=== PATIENT | female | born 1935 | race Caucasian/White ===

== ENCOUNTER 2016-11-13 09:31 | Observation (INO) | payer MEDICARE, MEDICAID ==
[2016-11-13 10:30] LABS: Hematocrit 40 % (35-47); Mean Corpuscular HGB Conc 33 g/dl (31-36); Mean Corpuscular Hemoglobin 30 pg (27-31); Mean Corpuscular Volume 92 fL (80-97); Mean Platelet Volume 9 um3 (7.4-10.4); Red Blood Count 4.31 10^6/ul (4.0-5.4); Red Cell Distribution Width 14 % (10.5-15); White Blood Count 9.6 10^3/ul (3.5-10.8)
--- NOTE | 2016-11-13 10:33 | RAD ---
INDICATION: Altered mental status. COMPARISON: Comparison is made with a prior chest x-ray study from February 19, 2016. TECHNIQUE: A portable view of the chest was obtained. FINDINGS: Cardiac and mediastinal contours appear to be within normal limits. The lungs are underinflated and clear. No pleural effusion is seen. IMPRESSION: NO EVIDENCE FOR ACUTE DISEASE.
[2016-11-13 10:52] LABS: Troponin I 0.04 ng/mL (<0.04)
[2016-11-13 10:58] LABS: Albumin 4.1 g/dL (3.2-5.2); Calcium 10.2 mg/dL (8.6-10.3); EGFR African American 68.3 (>60); EGFR Non-African American 53.1 (>60); Globulin 3.8 g/dL (2-4); Potassium 4.7 mmol/L (3.5-5.0); Total Bilirubin 0.3 mg/dL (0.2-1.0); Total Protein 7.9 g/dL (6.4-8.9)
--- NOTE | 2016-11-13 11:27 | RAD ---
Indication: Altered mental status. Increased confusion and facial droop. Weakness. Comparison: February 19, 2016 CT. Technique: Noncontrast CT vertex of skull through foramen magnum. Report: Unchanged LEFT frontal extra-axial epidural hypodense fluid collection measuring up to 4 mm in thickness compared with the February 19, 2016 exam without concern. Chronic large region of encephalomalacia primarily involving the LEFT anterior cerebral artery distribution of the LEFT frontal lobe. No new region of krishna matter white matter obscuration, acute or subacute intra or extra-axial hemorrhage, or mass effect. Decreased density in the periventricular and subcortical white matter while non-specific is most likely due to chronic microangiopathy. Mild prominence of the cerebral sulci and cerebellar fissures as well as moderate prominence of the ventricles without change reflecting atrophy. Patent basal cisterns. Unremarkable orbital contents. No suspicious lesion of the calvarium or skull base. Postsurgical change of LEFT frontal temporal craniotomy and merry hole. Clear paranasal sinuses and mastoid air spaces. Unremarkable scalp.. IMPRESSION: 1. Postsurgical change of LEFT frontal temporal craniotomy and unchanged large region of encephalomalacia at the anterior cerebral artery distribution of the LEFT frontal lobe. 2. Atrophy and stigmata of chronic small vessel ischemic disease. 3. No acute intracranial process evident.
[2016-11-13 11:34] LABS: Urine Bacteria 1+ (Absent); Urine Bilirubin Negative (Negative); Urine Glucose Negative (Negative); Urine Nitrite Negative (Negative)
[2016-11-13] MEDS ORDERED: cefTRIAXone(*) 1 GM in NS 0.9% 50 ML* 50 ML IVPB ONE (13:34)
[2016-11-13] MEDS ORDERED: NS 0.9% 1000 ML* 1,000 ML IV ONE (13:34)
[2016-11-13] MEDS ORDERED: GuaiFENesin DM* 5 ML UDC PO PRN (14:35)
[2016-11-13] MEDS ORDERED: Acetaminophen TAB* 325 MG PO PRN (14:35)
[2016-11-13] MEDS ORDERED: Al Hydrox/Mg Hydrox/Simet LIQ* 30 ML UDC PO PRN (14:35)
[2016-11-13] MEDS ORDERED: Ibuprofen TAB* 400 MG PO PRN (14:35)
[2016-11-13] MEDS ORDERED: Calamine LOTION* 120 ML TOPICAL PRN (14:35)
[2016-11-13 15:35] LABS: TSH (Thyroid Stimulating Horm) 5.23 mcIU/mL (0.34-5.60)
[2016-11-13] MEDS: NS 0.9% 1000 ML* 1,000 ML IV SCH (15:58)
[2016-11-13] MEDS: Docusate CAP* 100 MG PO SCH (21:18)
[2016-11-13] MEDS: Heparin VIAL(*) 5000 UNITS/ML VIAL (FIVE THOUSAND) SUBCUT SCH (21:19)
[2016-11-13] MEDS: Phenytoin CAP(*) 100 MG CAP.ER PO SCH (21:19)
--- NOTE | 2016-11-13 22:11 | HP ---
HISTORY AND PHYSICAL: DATE OF ADMISSION: 11/13/16 PRIMARY CARE PHYSICIAN: Dr. Carmen Ramirez. CHIEF COMPLAINT: Lethargy. HISTORY OF PRESENT ILLNESS: Ms. eRina is an 81-year-old female with a past medical history of developmental delay; seizure disorder; dementia; history of DVT; recurrent UTIs, on prophylactic Bactrim; anaplastic oligodendroglioma, status post left frontal craniotomy and resection; hypothyroidism who presents to the hospital from her [facility] with lethargy. The patient is unable to contribute much to history due to her developmental delay. History is obtained mostly from the chart and from staff at [facility]. The patient reportedly this morning was not responding when they attempted to wake her up. She was much more lethargic than usual. The staff was finally able to get her up and onto the toilet and they state that she was throwing herself back while she was sitting on the toilet and was at risk of falling. The patient has not had any recent fever or chills; however, they did note over the past few days that she had been acting in a more uncooperative manner than she usually is. Staff feel that this is a similar presentation to her frequent urinary tract infections. She is on prophylactic Bactrim at home for recurrent UTI's. The patient is unable to contribute much to the history. She has no complaints at present and seems surprised to be told that she is in the hospital. PAST MEDICAL HISTORY: 1. Developmental delay. 2. Seizure disorder. 3. Hypothyroidism. 4. Anaplastic oligodendroglioma. 5. DVT, not currently on anticoagulation. 6. Dementia. 7. Recurrent UTIs. 8. GERD. PAST SURGICAL HISTORY: 1. Left frontal craniotomy. 2. Lumpectomy. HOME MEDICATIONS: 1. Synthroid 125 mcg by mouth daily. 2. Sunscreen topical daily as needed for sun exposure. 3. Tylenol 650 mg by mouth every 4 hours as needed for pain. 4. Ibuprofen 400 mg by mouth every 4 hours as needed for pain. 5. Calamine lotion 1 application topical 3 times daily as needed for itching. 6. Bacitracin 1 application topical 3 times daily as needed for wound care. 7. Guaifenesin 10 mL by mouth every 4 hours as needed for cough. 8. Maalox 30 mL by mouth with meals and at night as needed for indigestion. 9. Mineral oil 3 drops in both ears 3 times daily. 10. Trospium chloride 60 mg by mouth daily. 11. Minerin cream 1 application topical daily. 12. Probiotic 4 mg by mouth 2 times daily. 13. Omeprazole 20 mg by mouth daily. 14. Colace 200 mg by mouth 2 times daily. 15. Phenytoin 200 mg by mouth 2 times daily. 16. Multivitamin 1 tablet by mouth daily. 17. Bactrim Double Strength 1 tablet by mouth daily. 18. Calcium carbonate 600 plus D 1 tablet by mouth daily. 19. MiraLAX 17 g by mouth daily. ALLERGIES: ABRAHAM, PROCAINE, and ANESTHETICS. FAMILY HISTORY: Unable to obtain. SOCIAL HISTORY: The patient is a resident at [facility]. He has no surrogate decision maker. No reported history of alcohol or illicit drug use or tobacco abuse. REVIEW OF SYSTEMS: Unable to obtain. PHYSICAL EXAMINATION GENERAL: The patient is a pleasant elderly female lying in bed in no apparent distress with occasional moaning; however, this may be more of an involuntary noise and expression of pain. VITAL SIGNS: On admission, temperature 99.5, heart rate of 75, O2 saturation 97 % on room air, respiratory rate 16, blood pressure 126/58. HEENT: Pupils equal, round, reactive to light and accommodation. Anicteric sclerae. Moist mucous membranes. NECK: No cervical adenopathy. LUNGS: Clear to auscultation bilaterally. No wheezes, rales, or rhonchi. CARDIOVASCULAR: Regular rate and rhythm. S1 and S2 present. No murmurs, gallops, or rubs. ABDOMEN: Obese, soft, nontender, nondistended. Bowel sounds positive. EXTREMITIES: No cyanosis, clubbing, or edema. NEUROLOGIC: The patient is alert and oriented to self only. Unable to tell me where she is or why she is at the hospital. No focal neurological deficits aside from a chronic left facial droop. LABS AND DIAGNOSTICS: White blood cell count of 9.6, hematocrit of 40, platelets of 190. INR was 0.87. Sodium 136, potassium 4.7, carbon dioxide 27, BUN of 26, creatinine of 1.00, glucose of 122, lactic acid of 1.6, alk phos of 185. Remainder of LFTs within normal limits. Troponin of 0.04. UA with 1+ blood, trace leukocyte esterase, 1+ wbc, squamous epithelial cells, 1+ bacteria. CT of the brain shows status post left frontotemporal craniotomy with encephalomalacia, no acute changes. Chest x-ray personally reviewed shows no acute disease. EKG personally reviewed shows left bundle branch block which is chronic. ASSESSMENT AND PLAN: Unresponsive episode and lethargy in an 81-year-old female with a past medical history of developmental delay, seizure disorder, hypothyroidism, history of brain cancer, status post resection, recurrent urinary tract infections and gastroesophageal reflux disease. 1. Lethargy, altered mental status: Symptoms are similar to the previous presentation the patient had when she presented with urinary tract infection; however, her UA is not completely convincing for this. She received a dose of ceftriaxone in the emergency department. We will hold off on any additional IV antibiotics for now and will resume her home prophylactic Bactrim. It does seem that she has some dehydration on her labs. We will continue with IV fluids overnight tonight. We will check a TSH level. The patient's mental status seems improved at the moment. 2. Troponin elevation: Troponin of 0.04. The patient is not showing any ischemic EKG changes. Not reporting any chest pain currently. We will just monitor on telemetry and trend the patient's troponins for now. 3. Seizure disorder: I do not feel that this is likely a seizure. We will continue the patient's home phenytoin 200 mg by mouth 2 times daily. 4. Hypothyroidism: Continue home Synthroid. Checking a TSH as above. 5. Developmental delay: Supportive care. 6. DVT prophylaxis: Heparin subcu. 7. Code status: The patient is a full code. TIME SPENT: Total time spent on this admission, 35 minutes with over half the time spent [id number] with the patient in counseling and coordinating care. CC: Dr. Carmen Ramirez* [id number]/CPS #: [id number] [facility] HOSPITALNicole
[2016-11-14] MEDS: NS 0.9% 1000 ML* 1,000 ML IV SCH (02:22)
[2016-11-14] MEDS: Heparin VIAL(*) 5000 UNITS/ML VIAL (FIVE THOUSAND) SUBCUT SCH (05:45)
[2016-11-14 05:55] LABS: BUN/Creatinine Ratio 29.6 (8-20); Calcium 8.8 mg/dL (8.6-10.3); EGFR African American 101.4 (>60); EGFR Non-African American 78.8 (>60)
[2016-11-14] MEDS ORDERED: Levothyroxine TAB* 125 MCG TAB PO SCH (06:00)
[2016-11-14 08:17] VITALS: BP 152/50
--- NOTE | 2016-11-14 08:39 | DCNOTE ---
Patient seen this morning. No further issues overnight other than pulling out her IV. Is awake and alert, aide at bedside says she seems to be at her baseline. Ate all of her breakfast. On exam, RRR, s1 and s2 present, no m/g/r, abd soft, NTND, BS+, no LE edema, mild RUE edema and erythema from infiltrated IV Do not think patient has UTI. Mild LIBERTY improved with IVF. Will discharge back to [facility] with previous ppx Bactrim. No additional ABx indicated at this time.
[2016-11-14] MEDS ORDERED: Omeprazole CAP* 20 MG PO SCH (09:00)
[2016-11-14] MEDS ORDERED: Polyethylene Glycol 3350* 17 GM PACKET PO SCH (09:00)
[2016-11-14] MEDS ORDERED: Sulfamethox/Trimethoprim DS 800/160* TAB PO SCH (09:00)
[2016-11-14] MEDS ORDERED: Multivitamins/Minerals TAB PO SCH (09:00)
[2016-11-14] MEDS: Docusate CAP* 100 MG PO SCH (09:46)
[2016-11-14] MEDS: Phenytoin CAP(*) 100 MG CAP.ER PO SCH (09:46)
--- NOTE | 2016-11-14 23:26 | DS ---
DISCHARGE SUMMARY: DATE OF ADMISSION: 11/13/16 DATE OF DISCHARGE: 11/14/16 PRIMARY CARE PHYSICIAN: Dr. Carmen Ramirez. PRINCIPAL DISCHARGE DIAGNOSES: 1. Acute kidney injury. 2. Dehydration. 3. Lethargy. SECONDARY DIAGNOSES: 1. Recurrent urinary tract infections. 2. Dementia. 3. Developmental delay. 4. Seizure disorder. 5. Hypothyroidism. 6. Anaplastic oligodendroglioma, status post resection. 7. Left frontal craniotomy. 8. Deep venous thrombosis. 9. Gastroesophageal reflux disease. DISCHARGE MEDICATION REGIMEN: 1. MiraLAX 17 g by mouth daily. 2. Calcium carbonate. 3. Vitamin D 1 tablet by mouth daily. 4. Bactrim 1 tablet by mouth daily. 5. Tylenol 650 mg by mouth 2 times daily as needed for pain. 6. Multivitamins 1 tablet by mouth daily. 7. Phenytoin 200 mg by mouth 2 times daily. 8. Colace 200 mg by mouth 2 times daily. 9. Omeprazole 20 mg by mouth daily. 10. Probiotic 4 mg by mouth 2 times daily. 11. Eucerin cream 1 application topical daily. 12. [place] 60 mg by mouth daily. 13. Mineral oil 3 drops in both ears 3 times daily as needed for wax buildup. 14. Maalox Plus 30 mL by mouth a.c. and h.s. as needed for indigestion. 15. Robitussin 10 mL by mouth every 4 hours as needed for cough. 16. Bacitracin 1 application topical 2 times daily as needed for rash. 17. Calamine lotion 1 application topical 3 times daily as needed for itching. 18. Ibuprofen 400 mg by mouth every 4 hours as needed for pain. 19. Sunscreen 1 lotion topical daily as needed for sun exposure. 20. Synthroid 125 mcg by mouth daily. STUDIES DONE DURING HOSPITALIZATION: CT of the brain without contrast. Impression: Postsurgical change in the left frontotemporal craniotomy and unchanged large region of encephalomalacia at the anterior cerebral artery distribution on the left frontal lobe, atrophy and stigmata of chronic small vessel ischemic disease. No acute intracranial process is evident. Chest x-ray, impression: No evidence for acute disease. HPI AND HOSPITAL SUMMARY: Please see the full history and physical done by me on 11/13/16. Briefly, Ms. Reina is an 81-year-old female with a past medical history as above who presented to the hospital when she had an unresponsive episode and lethargy at [facility]. By the time the patient came to the hospital, she seemed to have improved. There was concern for possibly urinary tract infection, she was given a dose of ceftriaxone in the emergency department. She had some evidence of LIBERTY on her initial labs which improved with IV fluids. The patient's urinalysis was not convincing for urinary tract infection, no further IV antibiotics were given. She was continued on her home prophylactic Bactrim. Her symptoms resolved by the following day and she seemed to be back to her baseline. A TSH was checked that was negative. The patient also had a mild troponin elevation on admission that was trended and did not get any higher than 0.04. She will be discharged back to the custodial. Follow up with her PCP as an outpatient. TIME SPENT: Total time spent on this discharge, 35 minutes. This is a summary of the hospitalization; please see the full medical record for further details. CC: Dr. Carmen Ramirez * [id number]/CPS #: [id number]
--- NOTE | 2016-11-15 18:21 | ED ---
Hanny Almaguer Matthew, scribed for Scot Aragon MD on 11/13/16 at 1032 . Neurological HPI - HPI Summary HPI Summary: An 81 y/o female presents to the ED with difficulty ambulating, slouching, and decreased verbal response per her [facility] since 06:00 this morning. Per EMS , the patient was slouching to one side. She also has Hx of craniotomy, brain CA , and seizures. She has a Hx of left sided facial droop at baseline, which was documented in her arrival paperwork. The patient lives at a penitentiary. Associated symptoms include urinary incontinence. The patient denies pain, headache, chest pain, SOB, abdominal pain, and dysuria. Recent Hx of UTIs. The patient is completely interactive and answering questions appropriately currently. - History of Current Complaint Chief Complaint: EDGeneral Stated Complaint: WEAKNESS Hx Obtained From: Patient Onset/Duration: Started hours ago - 06:00, Still Present Timing: Constant Current Severity: None Pain Intensity: 3 Pain Scale Used: 0-10 Numeric Character: Other: - slouching and decreased responsiveness Aggravating: Nothing Alleviating: Nothing Associated Signs and Symptoms: Positive: Unsteady Gait - difficulty ambulating - Additional Pertinent History Primary Care Physician: [id number] - Allergy/Home Medications Allergies/Adverse Reactions: Allergies Allergy/AdvReac Type Severity Reaction Status Date / Time Anesthetics, Letitia Allergy Unknown Unknown Verified 11/13/16 09:41 Reaction Details Procaine [From Novocain] Allergy Unknown Unknown Verified 11/13/16 09:41 Reaction Details Environmental Allergies Allergy Unknown Unknown Uncoded 11/13/16 09:41 Reaction Details tape Allergy See Comment Uncoded 11/13/16 09:41 Home Medications: Home Medications Acetaminophen TAB* [Tylenol TAB*] 650 mg PO BID PRN 11/13/16 [History Confirmed 11/13/16] Acetaminophen TAB* [Tylenol TAB*] 650 mg PO Q4H PRN 11/13/16 [History Confirmed 11/13/16] Levothyroxine TAB* [Synthroid 125 MCG TAB*] 125 mcg PO DAILY 11/13/16 [History Confirmed 11/13/16] Mineral Oil [Hm Mineral Oil] 3 drop BOTH EARS TID PRN 11/13/16 [History Confirmed 11/13/16] Minerin Cream* [Eucerin Cream*] 1 applic TOPICAL DAILY 11/13/16 [History Confirmed 11/13/16] Omeprazole CAP* [Prilosec CAP* 20 MG] 20 mg PO DAILY 11/13/16 [History Confirmed 11/13/16] Sunscreens [Sunblock Lotion Spf30] 1 lot TOPICAL DAILY PRN 11/13/16 [History Confirmed 11/13/16] PMH/Surg Hx/FS Hx/Imm Hx Endocrine/Hematology History: Reports: Hx Thyroid Disease Denies: Hx Anticoagulant Therapy, Hx Diabetes, Hx Sickle Cell Disease Cardiovascular History: Denies: Hx Hypertension, Hx Pacemaker/ICD Respiratory History: Denies: Hx Asthma, Hx Chronic Obstructive Pulmonary Disease (COPD) GI History: Reports: Hx Gastroesophageal Reflux Disease, Other GI Disorders - constipation Denies: Hx Ulcer History: Reports: Other Problems/Disorders - urinary incontinence, UTI Denies: Hx Renal Disease Musculoskeletal History: Reports: Hx Arthritis - OSTEOARTHRITIS, Hx Osteoporosis - osteopenia, Hx Scoliosis - mild Denies: Other Musculoskeletal History Sensory History: Reports: Hx Cataracts, Hx Contacts or Glasses, Hx Hearing Aid, Hx Hearing Problem Opthamlomology History: Reports: Hx Cataracts, Hx Contacts or Glasses Neurological History: Reports: Hx Dementia, 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 PT UNABLE TO COMMUNICATE, DEMENTIA. LIMITED HISTORY Hx Anesthesia Reactions: No Infectious Disease History: No Infectious Disease History: Denies: Hx Clostridium Difficile, Hx Hepatitis, Hx Human Immunodeficiency Virus (HIV), Hx of Known/Suspected MRSA, Hx Shingles, Hx Tuberculosis, Hx Known/ Suspected VRE, Hx Known/Suspected VRSA, History Other Infectious Disease, Traveled Outside the [place] in Last 30 Days - Family History Family History: No FHx of breast CA - Social History Alcohol Use: None Substance Use Type: Reports: None Smoking Status (MU): Never Smoked Tobacco Review of Systems Constitutional: Negative Eyes: Negative ENT: Negative Cardiovascular: Negative Respiratory: Negative Gastrointestinal: Negative Positive: incontinence - urinary Musculoskeletal: Negative Skin: Negative Neurological: Negative Psychological: Normal All Other Systems Reviewed And Are Negative: Yes Physical Exam Triage Information Reviewed: Yes Vital Signs On Initial Exam: Initial Vitals Temp Pulse Resp BP Pulse Ox 99.5 F 75 16 126/58 97 11/13/16 09:40 11/13/16 09:40 11/13/16 09:40 11/13/16 09:40 11/13/16 09:40 Vital Signs Reviewed: Yes Appearance: Positive: Well-Appearing, No Pain Distress Skin: Positive: Warm, Dry Head/Face: Positive: Other - Normocephalic; Atraumatic Eyes: Positive: Conjunctiva Clear ENT: Positive: Normal ENT inspection Neck: Positive: No Lymphadenopathy, Other: - Full ROM; No JVD Respiratory/Lung Sounds: Positive: Other - Normal Effort; No respiratory distress. Negative: Rales, Rhonchi, Stridor, Tracheal Deviation, Wheezes Cardiovascular: Positive: RRR, Other - Rhythm regular, rate normal, Heart sounds normal; Intact distal pulses; The pedal pulses are 2+ and symmetric. Radial pulses are 2+ and symmetric. Negative: Murmur Abdomen Description: Positive: Other: - SUPRAPUBIC TENDERNESS; URINARY INCONTINENCE; No Rebound. Negative: Distended, Guarding Bowel Sounds: Positive: Present Musculoskeletal: Negative: Edema Left, Edema Right Neurological: Positive: Sensory/Motor Intact, CN Intact II-III Psychiatric: Positive: Affect/Mood Appropriate - Petra Coma Scale Coma Scale Total: 14 Diagnostics - Vital Signs Vital Signs Temp Pulse Resp BP Pulse Ox 11/13/16 09:40 99.5 F 75 16 126/58 97 - Laboratory Lab Results: Lab Results 11/13/16 11/13/16 11/13/16 Range/Units 10:15 10:15 10:15 WBC 9.6 (3.5-10.8) 10^3/ul RBC 4.31 (4.0-5.4) 10^6/ul Hgb 13.0 (12.0-16.0) g/dl Hct 40 (35-47) % MCV 92 (80-97) fL MCH 30 (27-31) pg MCHC 33 (31-36) g/dl RDW 14 (10.5-15) % Plt Count 190 (150-450) 10^3/ul MPV 9 (7.4-10.4) um3 Neut % (Auto) 80.2 (38-83) % Lymph % (Auto) 12.6 L (25-47) % [place] % (Auto) 6.0 (1-9) % Eos % (Auto) 0.9 (0-6) % Baso % (Auto) 0.3 (0-2) % Absolute Neuts (auto) 7.7 (1.5-7.7) 10^3/ul Absolute Lymphs (auto) 1.2 (1.0-4.8) 10^3/ul Absolute Monos (auto) 0.6 (0-0.8) 10^3/ul Absolute Eos (auto) 0.1 (0-0.6) 10^3/ul Absolute Basos (auto) 0 (0-0.2) 10^3/ul Absolute Nucleated RBC 0.01 10^3/ul Nucleated RBC % 0.1 INR (Anticoag Therapy) 0.87 L (0.89-1.11) APTT 25.7 L (26.0-36.3) seconds Sodium 136 (133-145) mmol/L Potassium 4.7 (3.5-5.0) mmol/L Chloride 102 (101-111) mmol/L Carbon Dioxide 27 (22-32) mmol/L Anion Gap 7 (2-11) mmol/L BUN 26 H (6-24) mg/dL Creatinine 1.00 H (0.51-0.95) mg/dL Est GFR ( Amer) 68.3 (>60) Est GFR (Non-Af Amer) 53.1 (>60) BUN/Creatinine Ratio 26.0 H (8-20) Glucose 122 H (70-100) mg/dL Lactic Acid (0.5-2.0) mmol/L Calcium 10.2 (8.6-10.3) mg/dL Total Bilirubin 0.30 (0.2-1.0) mg/dL AST 33 (13-39) U/L ALT 37 (7-52) U/L Alkaline Phosphatase 185 H (34-104) U/L Troponin I 0.04 H* (<0.04) ng/mL Total Protein 7.9 (6.4-8.9) g/dL Albumin 4.1 (3.2-5.2) g/dL Globulin 3.8 (2-4) g/dL Albumin/Globulin Ratio 1.1 (1-3) TSH 5.23 (0.34-5.60) mcIU/mL Urine Color Urine Appearance Urine pH (5-9) Ur Specific [place] (1.010-1.030) Urine Protein (Negative) Urine Ketones (Negative) Urine Blood (Negative) Urine Nitrate (Negative) Urine Bilirubin (Negative) Urine Urobilinogen (Negative) Ur Leukocyte Esterase (Negative) Urine WBC (Auto) (Absent) Urine RBC (Auto) (Absent) Ur Squamous Epith Cells (Absent) Urine Bacteria (Absent) Urine Glucose (Negative) 11/13/16 11/13/16 11/13/16 Range/Units 10:15 11:20 14:05 WBC (3.5-10.8) 10^3/ul RBC (4.0-5.4) 10^6/ul Hgb (12.0-16.0) g/dl Hct (35-47) % MCV (80-97) fL MCH (27-31) pg MCHC (31-36) g/dl RDW (10.5-15) % Plt Count (150-450) 10^3/ul MPV (7.4-10.4) um3 Neut % (Auto) (38-83) % Lymph % (Auto) (25-47) % [place] % (Auto) (1-9) % Eos % (Auto) (0-6) % Baso % (Auto) (0-2) % Absolute Neuts (auto) (1.5-7.7) 10^3/ul Absolute Lymphs (auto) (1.0-4.8) 10^3/ul Absolute Monos (auto) (0-0.8) 10^3/ul Absolute Eos (auto) (0-0.6) 10^3/ul Absolute Basos (auto) (0-0.2) 10^3/ul Absolute Nucleated RBC 10^3/ul Nucleated RBC % INR (Anticoag Therapy) (0.89-1.11) APTT (26.0-36.3) seconds Sodium (133-145) mmol/L Potassium (3.5-5.0) mmol/L Chloride (101-111) mmol/L Carbon Dioxide (22-32) mmol/L Anion Gap (2-11) mmol/L BUN (6-24) mg/dL Creatinine (0.51-0.95) mg/dL Est GFR ( Amer) (>60) Est GFR (Non-Af Amer) (>60) BUN/Creatinine Ratio (8-20) Glucose (70-100) mg/dL Lactic Acid 1.6 1.7 (0.5-2.0) mmol/L Calcium (8.6-10.3) mg/dL Total Bilirubin (0.2-1.0) mg/dL AST (13-39) U/L ALT (7-52) U/L Alkaline Phosphatase (34-104) U/L Troponin I (<0.04) ng/mL Total Protein (6.4-8.9) g/dL Albumin (3.2-5.2) g/dL Globulin (2-4) g/dL Albumin/Globulin Ratio (1-3) TSH (0.34-5.60) mcIU/mL Urine Color Yellow Urine Appearance Clear Urine pH 5.0 (5-9) Ur Specific [place] 1.020 (1.010-1.030) Urine Protein Negative (Negative) Urine Ketones Negative (Negative) Urine Blood 1+ H (Negative) Urine Nitrate Negative (Negative) Urine Bilirubin Negative (Negative) Urine Urobilinogen Negative (Negative) Ur Leukocyte Esterase Trace H (Negative) Urine WBC (Auto) 1+(6-10/hpf) H (Absent) Urine RBC (Auto) Trace(0-2/hpf) (Absent) Ur Squamous Epith Cells Present H (Absent) Urine Bacteria 1+ H (Absent) Urine Glucose Negative (Negative) Result Diagrams: 11/13/16 10:15 11/14/16 04:58 Lab Statement: Any lab studies that have been ordered have been reviewed, and results considered in the medical decision making process. - Radiology CXR Xray Interpretation: No Acute Changes - IMPRESSION: NO EVIDENCE FOR ACUTE DISEASE. Radiology Interpretation Completed By: Radiologist - CT Brain CT CT Interpretation: No Acute Changes - IMPRESSION: 1. Postsurgical change of LEFT frontal temporal craniotomy and unchanged large region of encephalomalacia at the anterior cerebral artery distribution of the LEFT frontal lobe. 2. Atrophy and stigmata of chronic small vessel ischemic disease. 3. No acute intracranial process evident. CT Interpretation Completed By: Radiologist - EKG 09:52 Cardiac Rate: NL - 75 bpm EKG Rhythm: Sinus Rhythm EKG Interpretation: LBBB; No STEMI Re-Evaluation - Re-Evaluation First Eval Re-Evaluation Time: 13:41 Change: Unchanged Comment: Staff member reported at her penitentiary that she could not stand up and that she did not recognize staff. Everyone at the group needs to be ambulatory to live at the facility. Course/Dx - Course Assessment/Plan: An 81 y/o female presents to the ED with difficulty ambulating , slouching, and decreased verbal response per her [facility] since 06:00 this morning. Per EMS, the patient was slouching to one side. She also has Hx of craniotomy, brain CA, and seizures. She has a Hx of left sided facial droop at baseline, which was documented in her arrival paperwork. The patient lives at a penitentiary. Associated symptoms include urinary incontinence. The patient denies pain, headache, chest pain, SOB, abdominal pain, and dysuria. Recent Hx of UTIs. The patient is completely interactive and answering questions appropriately currently. Labs were reviewed. Troponin was elevated at 0.04. CXR shows no evidence for acute disease. Brain CT shows postsurgical change of LEFT frontal temporal craniotomy and unchanged large region of encephalomalacia at the anterior cerebral artery distribution of the LEFT frontal lobe. 2. Atrophy and stigmata of chronic small vessel ischemic disease. 3. No acute intracranial process evident. EKG shows sinus rhythm at 75 bpm with LBBB. In the ED course, the patient was given IV fluids, and Rocephin. Discussed the case with Dr. Lundberg who will admit the patient into his services. - Diagnoses Provider Diagnoses: UTI (urinary tract infection), Dehydration, Delirium, AMS - Physician Notifications Discussed Care of Patient With: Dr. Lundberg (Hospitalist) at 14:07 -- Notified of patient's history and will admit the patient into his services. Discharge - Discharge Plan Condition: Good Disposition: ADMITTED TO [facility] documentation as recorded by the Hanny tam Matthew accurately reflects the service I personally performed and the decisions made by me, Scot Aragon MD.
== END 2016-11-14 11:30 ==
LOC: ED 09:31 → MEDTELE 14:25
PROVIDERS: ADMIT Hospitalist; ATTEND Hospitalist
DX: N17.9 Acute kidney failure, unspecified (principal); R41.82 Altered mental status, unspecified; E86.0 Dehydration; R74.8 Abnormal levels of other serum enzymes; R53.83 Other fatigue; F03.90 Unspecified dementia, unspecified severity, without behavioral disturbance, psychotic disturbance, mood disturbance, and anxiety; I44.7 Left bundle-branch block, unspecified; R62.50 Unspecified lack of expected normal physiological development in childhood; G40.909 Epilepsy, unspecified, not intractable, without status epilepticus; E03.9 Hypothyroidism, unspecified; K21.9 Gastro-esophageal reflux disease without esophagitis; Z86.718 Personal history of other venous thrombosis and embolism
CPT/HCPCS: 36415; 70450; 71010; 80048; 80053; 81003; 81015; 83605; 84443; 84484; 85025; 85610; 85730; 87040; 87086; 93005; 96361; 96365; 96372; 99284; A9270-GY; G0378; J0696; J1644

== ENCOUNTER 2017-07-10 13:14 | Emergency (ER) | payer MEDICARE, MEDICAID ==
[2017-07-10 17:31] LABS: ABS Basophils 0 10^3/ul (0-0.2); ABS Eosinophils 0.2 10^3/ul (0-0.6); ABS Lymphocytes 1.6 10^3/ul (1.0-4.8); ABS Monocytes 0.4 10^3/ul (0-0.8); ABS Neutrophils 2.7 10^3/ul (1.5-7.7); ABS Nucleated RBC 0.01 10^3/ul; Eosinophil % 3.4 % (0-6); Hematocrit 39 % (35-47); Hemoglobin 12.9 g/dl (12.0-16.0); Lymphocyte % 33.3 % (25-47); Mean Corpuscular HGB Conc 33 g/dl (31-36); Mean Corpuscular Hemoglobin 31 pg (27-31); Mean Corpuscular Volume 94 fL (80-97); Mean Platelet Volume 11 um3 (7.4-10.4); Nucleated Red Blood Cells % 0.1; Platelet Count 134 10^3/ul (150-450); Red Blood Count 4.14 10^6/ul (4.0-5.4); Red Cell Distribution Width 14 % (10.5-15); White Blood Count 4.9 10^3/ul (3.5-10.8)
[2017-07-10 17:46] LABS: EGFR Non-African American 59.8 (>60)
[2017-07-10 18:00] LABS: Urine Appearance Cloudy; Urine Blood Negative (Negative); Urine Color Amber; Urine Ketones Negative (Negative); Urine Protein Negative (Negative); Urine Specific Gravity 1.018 (1.010-1.030); Urine Urobilinogen Negative (Negative)
[2017-07-10 19:24] VITALS: BP 126/51
--- NOTE | 2017-07-10 19:33 | RAD ---
INDICATION: Altered mental status. COMPARISON: Comparison is made with a prior chest x-ray study from November 13, 2016. TECHNIQUE: A portable view of the chest was obtained. FINDINGS: Cardiac and mediastinal contours appear to be within normal limits. The lungs are underinflated and clear. No pleural effusion is seen. IMPRESSION: NO EVIDENCE FOR ACUTE DISEASE.
--- NOTE | 2017-07-10 20:52 | ED ---
Juanito Almaguer Gabriel, scribed for Lopez Hines MD on 07/10/17 at 1658 . GI/ HPI - HPI Summary HPI Summary: This patient is a 82 year old F presenting to [facility] accompanied by her banquet server on call. Her banquet server on call reports that she drinks less than 16 ounces a day and urinates even less. Her urine is very dark and pungent; she is prone to UTIs and has not been eating recently. He also states that the patient appears fatigued but isnt vomiting. She has lost 27 pounds in the last 6 weeks. LEVEL 5 CAVEAT: HPI limited due to the patient being demented and non verbal. - History of Current Complaint Chief Complaint: EDUrogenitalProblems Time Seen by Provider: 07/10/17 16:48 Stated Complaint: POSSIBLE UTI Hx Obtained From: Family/Brilliandeer Lopper Hx From Patient Unobtainable Due To: Dementia Onset/Duration: Still Present Timing: Constant Severity: Moderate Current Severity: Moderate Pain Intensity: 0 Associated Signs and Symptoms: Positive: Negative - vomiting, Other: - weight loss and fatigue - Additional Pertinent History Primary Care Physician: [id number] - Allergy/Home Medications Allergies/Adverse Reactions: Allergies Allergy/AdvReac Type Severity Reaction Status Date / Time Anesthetics, Letitia Allergy Unknown Unknown Verified 11/13/16 09:41 Reaction Details Procaine [From Novocain] Allergy Unknown Unknown Verified 11/13/16 09:41 Reaction Details Environmental Allergies Allergy Unknown Unknown Uncoded 11/13/16 09:41 Reaction Details tape Allergy See Comment Uncoded 11/13/16 09:41 PMH/Surg Hx/FS Hx/Imm Hx Previously Healthy: No Endocrine/Hematology History: Reports: Hx Thyroid Disease Denies: Hx Anticoagulant Therapy, Hx Diabetes, Hx Sickle Cell Disease Cardiovascular History: Denies: Hx Hypertension, Hx Pacemaker/ICD Respiratory History: Denies: Hx Asthma, Hx Chronic Obstructive Pulmonary Disease (COPD) GI History: Reports: Hx Gastroesophageal Reflux Disease, Other GI Disorders - constipation Denies: Hx Ulcer History: Reports: Other Problems/Disorders - urinary incontinence, UTI Denies: Hx Renal Disease Musculoskeletal History: Reports: Hx Arthritis - OSTEOARTHRITIS, Hx Osteoporosis - osteopenia, Hx Scoliosis - mild Denies: Other Musculoskeletal History Sensory History: Reports: Hx Cataracts, Hx Contacts or Glasses, Hx Hearing Aid, Hx Hearing Problem Opthamlomology History: Reports: Hx Cataracts, Hx Contacts or Glasses Neurological History: Reports: Hx Dementia, 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 PT UNABLE TO COMMUNICATE, DEMENTIA. LIMITED HISTORY Hx Anesthesia Reactions: No Infectious Disease History: No Infectious Disease History: Denies: Hx Clostridium Difficile, Hx Hepatitis, Hx Human Immunodeficiency Virus (HIV), Hx of Known/Suspected MRSA, Hx Shingles, Hx Tuberculosis, Hx Known/ Suspected VRE, Hx Known/Suspected VRSA, History Other Infectious Disease, Traveled Outside the [place] in Last 30 Days - Family History Family History: No FHx of breast CA - Social History Alcohol Use: None Substance Use Type: Reports: None Smoking Status (MU): Never Smoked Tobacco Review of Systems - ROS Summary Review of Systems Summary: LEVEL 5 CAVEAT: ROS limited due to the patient being demented and non verbal. Positive: Fatigue. Negative: Fever Negative: Vomiting Positive: other - dark, pungent urine All Other Systems Reviewed And Are Negative: No Physical Exam - Summary Physical Exam Summary: Appearance: The patient is sleeping but arouses easily when spoken to but she does not answer any questions. Skin: The skin is warm and dry and skin color reflects adequate perfusion. HEENT: The head is normocephalic and atraumatic. The pupils are equal and reactive. The conjunctivae are clear and without drainage. Nares are patent and without drainage. Mouth reveals dry mucous membranes and the throat is without erythema and exudate. The external ears are intact. The ear canals are patent and without drainage. The tympanic membranes are intact. Neck: the neck is supple with full range of motion and non-tender. There are no carotid bruits. There is no neck vein distension. Respiratory: Chest is non-tender. Lungs are clear to auscultation and breath sounds are symmetrical and equal. Cardiovascular: Heart is regular rate and rhythm. There is no murmur or rub auscultated. There is no peripheral edema and pulses are symmetrical and equal. Abdomen: The abdomen is soft and non-tender. There are normal bowel sounds heard in all four quadrants and there is no organomegaly palpated. Musculoskeletal: There is no back tenderness noted. Extremities are non-tender with full range of motion. There is good capillary refill. There is no peripheral edema or calf tenderness elicited. Neurological: . The patient has symmetrical motor strength in all four extremities. Cranial nerves are grossly intact. Deep tendon reflexes are symmetrical and equal in all four extremities. Psychiatric: The patient has an appropriate affect. LEVEL 5 CAVEAT: PE limited due to the patient being demented and non verbal. Triage Information Reviewed: Yes Vital Signs On Initial Exam: Initial Vitals Temp Pulse Resp BP Pulse Ox 96.5 F 80 20 109/45 97 07/10/17 13:17 07/10/17 13:17 07/10/17 13:17 07/10/17 13:17 07/10/17 13:17 Vital Signs Reviewed: Yes Completion Of Physical Exam Limited Due To: Dementia Diagnostics - Vital Signs Vital Signs Temp Pulse Resp BP Pulse Ox 07/10/17 16:07 91 97 07/10/17 16:05 139/68 07/10/17 15:13 97.6 F 67 20 120/42 98 07/10/17 13:17 96.5 F 80 20 109/45 97 - Laboratory Lab Results: Lab Results 07/10/17 07/10/17 07/10/17 Range/Units 17:12 17:12 17:12 WBC 4.9 (3.5-10.8) 10^3/ul RBC 4.14 (4.0-5.4) 10^6/ul Hgb 12.9 (12.0-16.0) g/dl Hct 39 (35-47) % MCV 94 (80-97) fL MCH 31 (27-31) pg MCHC 33 (31-36) g/dl RDW 14 (10.5-15) % Plt Count 134 L (150-450) 10^3/ul MPV 11 H (7.4-10.4) um3 Neut % (Auto) 54.5 (38-83) % Lymph % (Auto) 33.3 (25-47) % [place] % (Auto) 8.2 (1-9) % Eos % (Auto) 3.4 (0-6) % Baso % (Auto) 0.6 (0-2) % Absolute Neuts (auto) 2.7 (1.5-7.7) 10^3/ul Absolute Lymphs (auto) 1.6 (1.0-4.8) 10^3/ul Absolute Monos (auto) 0.4 (0-0.8) 10^3/ul Absolute Eos (auto) 0.2 (0-0.6) 10^3/ul Absolute Basos (auto) 0 (0-0.2) 10^3/ul Absolute Nucleated RBC 0.01 10^3/ul Nucleated RBC % 0.1 Sodium 140 (133-145) mmol/L Potassium 4.4 (3.5-5.0) mmol/L Chloride 103 (101-111) mmol/L Carbon Dioxide 31 (22-32) mmol/L Anion Gap 6 (2-11) mmol/L BUN 21 (6-24) mg/dL Creatinine 0.90 (0.51-0.95) mg/dL Est GFR ( Amer) 76.9 (>60) Est GFR (Non-Af Amer) 59.8 (>60) BUN/Creatinine Ratio 23.3 H (8-20) Glucose 93 (70-100) mg/dL Lactic Acid 1.2 (0.5-2.0) mmol/L Calcium 10.2 (8.6-10.3) mg/dL Magnesium 2.0 (1.9-2.7) mg/dL Total Bilirubin 0.30 (0.2-1.0) mg/dL AST 28 (13-39) U/L ALT 32 (7-52) U/L Alkaline Phosphatase 242 H (34-104) U/L Troponin I 0.01 (<0.04) ng/mL C-Reactive Protein 13.19 H (< 5.00) mg/L Total Protein 7.1 (6.4-8.9) g/dL Albumin 3.6 (3.2-5.2) g/dL Globulin 3.5 (2-4) g/dL Albumin/Globulin Ratio 1.0 (1-3) TSH 1.75 (0.34-5.60) mcIU/mL Urine Color Urine Appearance Urine pH (5-9) Ur Specific [place] (1.010-1.030) Urine Protein (Negative) Urine Ketones (Negative) Urine Blood (Negative) Urine Nitrate (Negative) Urine Bilirubin (Negative) Urine Urobilinogen (Negative) Ur Leukocyte Esterase (Negative) Urine Glucose (Negative) Urine Ascorbic Acid (Negative) 07/10/17 Range/Units 17:51 WBC (3.5-10.8) 10^3/ul RBC (4.0-5.4) 10^6/ul Hgb (12.0-16.0) g/dl Hct (35-47) % MCV (80-97) fL MCH (27-31) pg MCHC (31-36) g/dl RDW (10.5-15) % Plt Count (150-450) 10^3/ul MPV (7.4-10.4) um3 Neut % (Auto) (38-83) % Lymph % (Auto) (25-47) % [place] % (Auto) (1-9) % Eos % (Auto) (0-6) % Baso % (Auto) (0-2) % Absolute Neuts (auto) (1.5-7.7) 10^3/ul Absolute Lymphs (auto) (1.0-4.8) 10^3/ul Absolute Monos (auto) (0-0.8) 10^3/ul Absolute Eos (auto) (0-0.6) 10^3/ul Absolute Basos (auto) (0-0.2) 10^3/ul Absolute Nucleated RBC 10^3/ul Nucleated RBC % Sodium (133-145) mmol/L Potassium (3.5-5.0) mmol/L Chloride (101-111) mmol/L Carbon Dioxide (22-32) mmol/L Anion Gap (2-11) mmol/L BUN (6-24) mg/dL Creatinine (0.51-0.95) mg/dL Est GFR ( Amer) (>60) Est GFR (Non-Af Amer) (>60) BUN/Creatinine Ratio (8-20) Glucose (70-100) mg/dL Lactic Acid (0.5-2.0) mmol/L Calcium (8.6-10.3) mg/dL Magnesium (1.9-2.7) mg/dL Total Bilirubin (0.2-1.0) mg/dL AST (13-39) U/L ALT (7-52) U/L Alkaline Phosphatase (34-104) U/L Troponin I (<0.04) ng/mL C-Reactive Protein (< 5.00) mg/L Total Protein (6.4-8.9) g/dL Albumin (3.2-5.2) g/dL Globulin (2-4) g/dL Albumin/Globulin Ratio (1-3) TSH (0.34-5.60) mcIU/mL Urine Color Judy Urine Appearance Cloudy Urine pH 7.0 (5-9) Ur Specific [place] 1.018 (1.010-1.030) Urine Protein Negative (Negative) Urine Ketones Negative (Negative) Urine Blood Negative (Negative) Urine Nitrate Negative (Negative) Urine Bilirubin Negative (Negative) Urine Urobilinogen Negative (Negative) Ur Leukocyte Esterase Negative (Negative) Urine Glucose Negative (Negative) Urine Ascorbic Acid * H (Negative) Result Diagrams: 07/10/17 17:12 07/10/17 17:12 Lab Statement: Any lab studies that have been ordered have been reviewed, and results considered in the medical decision making process. - Radiology CXR Radiology Interpretation Completed By: Radiologist - NO EVIDENCE FOR ACUTE DISEASE. ED physician has reviewed this radiology report. - EKG 1726 Cardiac Rate: NL EKG Rhythm: Sinus Rhythm - at 72 BPM EKG Interpretation: RBBB GIGU Course/Dx - Course Course Of Treatment: The source of Ms. Reina's anorexia is not clear she is not clinically dehydrated at this point. She does not have a UTI. I will recommend F/U with Dr. Dudley this week. - Diagnoses Provider Diagnoses: Anorexia Discharge - Discharge Plan Condition: Stable Disposition: HOME Referrals: Carmen Ramirez MD [Primary Care Provider] - 1 Week Additional Instructions: RETURN TO THE EMERGENCY DEPARTMENT FOR CHANGING OR WORSENING SYMPTOMS. The documentation as recorded by the Juanito tam Gabriel accurately reflects the service I personally performed and the decisions made by me, Lopez Hines MD.
== END 2017-07-26 08:37 | disposition home or self-care (01) ==
LOC: ED 13:14
DX: R63.0 Anorexia (principal); I45.10 Unspecified right bundle-branch block; F03.90 Unspecified dementia, unspecified severity, without behavioral disturbance, psychotic disturbance, mood disturbance, and anxiety; E07.9 Disorder of thyroid, unspecified; M19.90 Unspecified osteoarthritis, unspecified site; K21.9 Gastro-esophageal reflux disease without esophagitis
CPT/HCPCS: 36415; 71010; 80053; 81003; 83605; 83735; 84443; 84484; 85025; 86140; 93005; 99283

== ENCOUNTER 2017-07-12 18:33 | Emergency (ER) | payer MEDICARE, MEDICAID ==
[2017-07-12] MEDS ORDERED: Dexamethasone IV* 4 MG/ML 1 ML (4 MG) IM ONE (19:26)
--- NOTE | 2017-07-12 20:35 | ED ---
Sarkis Almaguer Tecjoon, scribkrista for Jerardo Juarez MD on 07/12/17 at 1943 . Allergic Reaction/Systemic - HPI Summary HPI Summary: This patient is a 82 year old female BIBA to [facility] accompanied by state worker with a chief complaint of swollen lips since approximately 1515 today. The state worker noticed that her lips became extremely pronounced and purple and believes her tongue may be swollen. Symptoms aggravated by nothing. Symptoms alleviated by nothing. Patient is MR and is non-verbal. Patient does not seem to be in any acute distress. State worker denies any rash. State worker notes that patient has not taken any new medication recently. Patient also does not take MATTY inhibitors. - History of Current Complaint Chief Complaint: EDGeneral Time Seen by Provider: 07/12/17 19:11 Hx Obtained From: Family/Factory Maintenance Manager - state worker Hx From Patient Unobtainable Due To: Other - MR Onset/Duration: Sudden Onset, Started hours ago Timing: Constant Severity Initially: Moderate Severity Currently: Moderate Pain Intensity: 0 Pain Scale Used: 0-10 Numeric Location: Discrete @ - mouth Character: Swelling Aggravating Factor(s): Nothing Alleviating Factor(s): Nothing Associated Signs And Symptoms: Positive: Negative - rash, SOB - Allergies/Home Medications Allergies/Adverse Reactions: Allergies Allergy/AdvReac Type Severity Reaction Status Date / Time Anesthetics, Letitia Allergy Unknown Unknown Verified 11/13/16 09:41 Reaction Details Procaine [From Novocain] Allergy Unknown Unknown Verified 11/13/16 09:41 Reaction Details Environmental Allergies Allergy Unknown Unknown Uncoded 11/13/16 09:41 Reaction Details tape Allergy See Comment Uncoded 11/13/16 09:41 PMH/Surg Hx/FS Hx/Imm Hx Previously Healthy: No Endocrine/Hematology History: Reports: Hx Thyroid Disease Denies: Hx Anticoagulant Therapy, Hx Diabetes, Hx Sickle Cell Disease Cardiovascular History: Denies: Hx Hypertension, Hx Pacemaker/ICD Respiratory History: Denies: Hx Asthma, Hx Chronic Obstructive Pulmonary Disease (COPD) GI History: Reports: Hx Gastroesophageal Reflux Disease, Other GI Disorders - constipation Denies: Hx Ulcer History: Reports: Other Problems/Disorders - urinary incontinence, UTI Denies: Hx Renal Disease Musculoskeletal History: Reports: Hx Arthritis - OSTEOARTHRITIS, Hx Osteoporosis - osteopenia, Hx Scoliosis - mild Denies: Other Musculoskeletal History Sensory History: Reports: Hx Cataracts, Hx Contacts or Glasses, Hx Hearing Aid, Hx Hearing Problem Opthamlomology History: Reports: Hx Cataracts, Hx Contacts or Glasses Neurological History: Reports: Hx Dementia, 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 PT UNABLE TO COMMUNICATE, DEMENTIA. LIMITED HISTORY Hx Anesthesia Reactions: No Infectious Disease History: No Infectious Disease History: Denies: Hx Clostridium Difficile, Hx Hepatitis, Hx Human Immunodeficiency Virus (HIV), Hx of Known/Suspected MRSA, Hx Shingles, Hx Tuberculosis, Hx Known/ Suspected VRE, Hx Known/Suspected VRSA, History Other Infectious Disease, Traveled Outside the [place] in Last 30 Days - Family History Known Family History: Negative: Other - breast cancer - Social History Occupation: Disabled Alcohol Use: None Hx Substance Use: No Substance Use Type: Reports: None Hx Tobacco Use: No Smoking Status (MU): Never Smoked Tobacco Review of Systems Negative: Fever Positive: Other - swollen tongue, lips Negative: Rash All Other Systems Reviewed And Are Negative: Yes Physical Exam - Summary Physical Exam Summary: VITAL SIGNS: Reviewed. GENERAL: Patient is a well-developed and nourished female who is lying comfortable in the stretcher. Patient is not in any acute respiratory distress. Patient is nonverbal, no drooling. HEAD AND FACE: No signs of trauma. No ecchymosis, hematomas or skull depressions. No sinus tenderness. EYES: PERRLA, EOMI x 2, No injected conjunctiva, no nystagmus. EARS: Hearing grossly intact. Ear canals and tympanic membranes are within normal limits. MOUTH: Mild swelling of lips, tongue and soft palate. Swelling is symmetrical. NECK: Supple, trachea is midline, no adenopathy, no JVD, no carotid bruit, no c- spine tenderness, neck with full ROM. CHEST: Symmetric, no tenderness at palpation LUNGS: Clear to auscultation bilaterally. No wheezing or crackles. No difficulty breathing. CVS: Regular rate and rhythm, S1 and S2 present, no murmurs or gallops appreciated. ABDOMEN: Soft, non-tender. No signs of distention. No rebound no guarding, and no masses palpated. Bowel sounds are normal. EXTREMITIES: FROM in all major joints, no edema, no cyanosis or clubbing. NEURO: Alert and oriented x 3. No acute neurological deficits. Speech is normal and follows commands. SKIN: Dry and warm. No rash. Triage Information Reviewed: Yes Vital Signs On Initial Exam: Initial Vitals Temp Pulse Resp BP Pulse Ox 98 F 72 22 120/46 95 07/12/17 18:40 07/12/17 18:40 07/12/17 18:40 07/12/17 18:40 07/12/17 18:40 Vital Signs Reviewed: Yes - Petra Coma Scale Coma Scale Total: 15 Diagnostics - Vital Signs Vital Signs Temp Pulse Resp BP Pulse Ox 07/12/17 18:40 98 F 72 22 120/46 95 - Laboratory Lab Statement: Any lab studies that have been ordered have been reviewed, and results considered in the medical decision making process. Allergic Reaction Course/Dx - Course Course Of Treatment: This patient is a 82 year old female BIBA to [facility] accompanied by state worker with a chief complaint of swollen lips since approximately 1515 today. The state worker noticed that her lips became extremely pronounced and purple and believes her tongue may be swollen. Patient is MR and is non-verbal. In the ED course the patient was given Decadron. Patient will be discharged with mild angioedema and a prescription for Prednisone. Patient is advised to follow up with PCP in 3 days. The patient is agreeable with this plan. - Diagnoses Provider Diagnoses: Angioedema of lips Discharge - Discharge Plan Condition: Fair Disposition: HOME Patient Education Materials: Angioedema (ED) Referrals: Carmen Ramirez MD [Primary Care Provider] - 3 Days Additional Instructions: Patient will be discharged with mild angioedema and a prescription for Prednisone. Patient is advised to follow up with PCP in 3 days. The patient is agreeable with this plan. Take Prednisone as directed. RETURN TO EMERGENCY DEPARTMENT FOR ANY NEW OR WORSENING SYMPTOMS The documentation as recorded by the Sarkis tam Tecjoon accurately reflects the service I personally performed and the decisions made by , Jerardo Juarez MD.
[2017-07-12 21:04] VITALS: BP 113/55
== END 2017-07-12 21:04 | disposition home or self-care (01) ==
LOC: ED 18:33
DX: T78.3XXA Angioneurotic edema, initial encounter (principal)
CPT/HCPCS: 96372; 99282; J1100

== ENCOUNTER 2017-10-23 15:36 | Inpatient (IN) | payer MEDICARE, MEDICAID ==
[2017-10-23] MEDS ORDERED: NS 0.9% 1000 ML* 1,000 ML IV ONE (16:18)
[2017-10-23 16:58] LABS: Urine Appearance Turbid; Urine Blood Negative (Negative); Urine Color Amber; Urine Ketones Negative (Negative); Urine Protein 1+(30 mg/dL) (Negative); Urine Specific Gravity 1.019 (1.010-1.030); Urine Urobilinogen Negative (Negative)
--- NOTE | 2017-10-23 17:02 | RAD ---
Indication: Altered mental status. Increasing weakness and decreased urine output. Currently being treated for UTI. Comparison: July 10, 2017 Technique: Upright AP 1635 hours Report: Low lung volumes with mild RIGHT greater than LEFT basilar atelectasis. No alveolar consolidation concerning for pneumonia, focal pulmonary lesion, pleural effusion, pneumothorax. The heart, pulmonary vasculature, and mediastinal contours are unremarkable. IMPRESSION: Low lung volumes with RIGHT greater than LEFT basilar atelectasis.
[2017-10-23 17:42] LABS: EGFR Non-African American 46.9 (>60)
[2017-10-23 18:00] LABS: ABS Basophils 0 10^3/ul (0-0.2); ABS Eosinophils 0.3 10^3/ul (0-0.6); ABS Lymphocytes 1.7 10^3/ul (1.0-4.8); ABS Monocytes 0.4 10^3/ul (0-0.8); ABS Neutrophils 3.1 10^3/ul (1.5-7.7); ABS Nucleated RBC 0 10^3/ul; Eosinophil % 5.6 % (0-6); Hematocrit 37 % (35-47); Hemoglobin 12.4 g/dl (12.0-16.0); Mean Corpuscular HGB Conc 33 g/dl (31-36); Mean Corpuscular Hemoglobin 31 pg (27-31); Mean Corpuscular Volume 94 fL (80-97); Mean Platelet Volume 11.9 um3 (7.4-10.4); Nucleated Red Blood Cells % 0; Platelet Count 92 10^3/ul (150-450); Red Blood Count 3.99 10^6/ul (4.0-5.4); Red Cell Distribution Width 14 % (10.5-15); White Blood Count 5.5 10^3/ul (3.5-10.8)
[2017-10-23] MEDS ORDERED: Ampicillin ADVAN(*) 1 GM in NS 0.9% 50 ML* 50 ML IVPB ONE (18:10)
--- NOTE | 2017-10-23 18:56 | RAD ---
Indication: Previous brain tumor and surgery in 2005. Increased weakness and decreased urine output. Currently being treated for urinary tract infection. Nonverbal. Comparison: November 13, 2016 CT Technique: Noncontrast head CT. Report: Chronic large region of encephalomalacia at the LEFT frontal lobe with associated LEFT hemispheric volume loss and small chronic extra-axial fluid collection measuring up to 0.4 cm in thickness without change. Associated ex vacuo dilatation of the LEFT lateral ventricle. Negative for hydrocephalus. Negative for sulcal effacement. Patent basal cisterns. Decreased density in the periventricular and subcortical white matter while non-specific is most likely due to chronic microangiopathy. No new region of krishna matter white matter obscuration or mass effect. Negative for intra or extra-axial hemorrhage. Unremarkable orbital contents. Previous LEFT frontal temporal craniotomy. No suspicious calvarial or skull base lesions evident. Foci of gas within facial veins and veins and cavernous sinuses at the skull base which may be seen following peripheral venipuncture. Negative for scalp hematoma. IMPRESSION: 1. No acute intracranial process evident. 2. 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 3. Stigmata of chronic small vessel ischemic disease.
[2017-10-23] MEDS ORDERED: Ondansetron INJ* 2 MG/ML VIAL IV PRN (20:18)
[2017-10-23] MEDS ORDERED: Acetaminophen TAB* 325 MG PO PRN (20:18)
[2017-10-23] MEDS ORDERED: GuaiFENesin DM* 5 ML UDC PO PRN (20:22)
[2017-10-23] MEDS ORDERED: Trospium (NF) 20 MG TAB PO SCH (21:00)
[2017-10-23] MEDS ORDERED: Phenytoin CAP(*) 100 MG CAP.ER PO SCH (21:00)
[2017-10-23] MEDS: Heparin VIAL(*) 5000 UNITS/ML VIAL (FIVE THOUSAND) SUBCUT SCH (23:02)
[2017-10-23] MEDS: Docusate CAP* 100 MG PO SCH (23:04)
[2017-10-23] MEDS: NS 0.9% 1000 ML* 1,000 ML IV SCH (23:05)
--- NOTE | 2017-10-23 23:14 | HP ---
HISTORY AND PHYSICAL: ADDENDUM: The patient's phenytoin level came back at 41.7. The patient has no known history of being overdosed on her phenytoin. The patient's phenytoin dose was changed from 200 daily to 200 b.i.d. at some point in the past year according to records which may account for the patient's toxicity. We will hold the patient's phenytoin, recheck level in the morning. No indication for activated charcoal at this time as the patient's symptoms are chronic and she has no evidence of acute overdose. This is possibly the etiology of the patient 's altered mental status. The patient's phenytoin levels have never been elevated like this before. CHRISTIN CARABALLO [id number]/CPS #: [id number] MTDD
--- NOTE | 2017-10-23 23:55 | HP ---
ADDENDUM NOW INCLUDED ON THIS REPORT CC: Dr. Carmen Ramirez * HISTORY AND PHYSICAL: DATE OF ADMISSION: 10/23/17 PRIMARY CARE PROVIDER: Dr. Carmen Ramirez. MY ATTENDING WHILE IN THE HOSPITAL: Dr. Christopher Hairston.* (DICTATED BY CHRISTIN CARABALLO) CHIEF COMPLAINT: Altered mental status, lethargy. HISTORY OF PRESENT ILLNESS: Ms. Reina is an 82-year-old female with a past medical history significant for developmental delay, seizure disorder, dementia , recurrent UTI, anaplastic oligodendroglioma, status post craniotomy and resection, who presents with 10 days of lethargy after she was diagnosed with a UTI on 10/11/17. The patient was treated with ciprofloxacin, which was changed to Augmentin. Patient showed no improvement according to her caregiver over that time, and over the past 36 hours has slept for 34. Of note, patient has been urinating approximately once a day, concentrated urine. Patient had a significant decrease in her oral intake. Patient has a history of seizure and it is unknown to her caregiver, who accompanied her, what these look like, but she has had increased involuntary movements in her arms and legs, particularly when sleeping, but no other epileptiform activity. She has been able to take her medications by mouth crushed in applesauce according to the caregiver, but has otherwise had very poor oral intake. Patient used to be able to stand while transporting and speak to a certain degree, though much of it was gibberish. This has all decreased over the past week in a quick decline. Patient has had a slow decline over the past approximately 6 months with regards to all her functionality. Patient is on suppressive Bactrim for recurrent UTIs. It is unknown if patient had a similar presentation with other UTIs. Patient has not had any changes in her bowel habits. No known fevers, sweating, cough, difficulty breathing, complaints of pain or other concerns. Patient does not have any family in the area. Due to patient's lethargy and not returning to baseline, we are asked to evaluate for admission. PAST MEDICAL HISTORY: Developmental delay, seizure disorder, dementia, DVT, recurrent UTI, anaplastic oligodendroglioma, GERD, hypothyroidism. PAST SURGICAL HISTORY: Frontal craniotomy resection, lumpectomy. MEDICATIONS ON ADMISSION: 1. Phenytoin 200 mg p.o. b.i.d. 2. Docusate 200 mg p.o. b.i.d. 3. Polyethylene glycol 17 g p.o. daily as needed. 4. Guaifenesin 5 mg p.o. 4 times a day as needed. 5. Multivitamin 1 tablet p.o. daily. 6. Bactrim double strength 1 tablet p.o. daily. 7. Mineral oil 3 drops to both ears t.i.d. as needed. 8. Minerin cream 1 application topical daily. 9. Omeprazole 20 mg p.o. daily. 10. Tylenol 650 mg p.o. b.i.d. as needed. 11. Synthroid 125 mcg p.o. daily. 12. Sunscreen 1 topical application b.i.d. as needed. 13. Align 4 mg p.o. b.i.d. 14. Kxg-M3-tkn-tino-vkpysr-akqbnhzza-borate, 1 tab p.o. daily. 15. Trospium 20 mg p.o. b.i.d. 16. Ibuprofen 400 mg p.o. q.4 hours as needed. ALLERGIES: ABRAHAM ANESTHETICS, PROCAINE, ENVIRONMENTAL ALLERGIES, and ADHESIVE TAPE. FAMILY HISTORY: Unknown. Patient is unable to provide. SOCIAL HISTORY: Patient lives at the [facility]. Patient has no family in the area. Patient is DNR. REVIEW OF SYSTEMS: Unable to obtain. PHYSICAL EXAMINATION GENERAL: Patient is an 82-year-old female who appears stated age and sitting on the bed, with her tongue protruded, in no acute distress. VITAL SIGNS: On arrival to the emergency department, temperature 96.1, pulse rate 57, respiratory rate 16, oxygen saturation 96% on room air, blood pressure 119/49. HEENT: Head: Normocephalic, atraumatic. Sclerae anicteric. No conjunctival injection. Nasal mucosa moist. Oral mucosa dry. Tongue protruded and dry. No pharyngeal erythema, discharge, or exudate. NECK: Supple, nontender. No lymphadenopathy. No carotid bruit auscultated. No JVD. RESPIRATORY: Clear to auscultation bilaterally. No wheezes, rales, or rhonchi. Good air exchange bilaterally. CARDIAC: Regular rate and rhythm. No clicks, murmurs, gallops, or rubs. Pulses 2+ in the bilateral dorsalis pedis, posterior tibialis, and radial areas. No bilateral lower extremity edema or calf tenderness to palpation. ABDOMEN: Soft, nontender, nondistended. Bowel sounds present and normoactive in all 4 quadrants. No hepatosplenomegaly. No abdominal bruits auscultated. GENITOURINARY: No suprapubic or CVA tenderness. Patient has a urinary catheter , which is draining pale, turbid urine. NEUROLOGIC: Patient has no focal deficits. Patient is responsive to noxious stimuli. Patient is able to wake up and say a few words at the end of the exam , and showed no facial droop or focal deficits in movement. SKIN: Clean, dry, intact. No rash. PSYCHIATRIC: Patient is not agitated. LABORATORY DATA: White blood cell count 5.5, hemoglobin 12.4, hematocrit 37, MCV 94, MCH 31, platelet count 92. Sodium 143, potassium 4.2, chloride 104, carbon dioxide 33, anion gap 6, BUN 23, creatinine 1.11. BUN-creatinine ratio of 20.7, glucose 94, lactic acid 1.2, calcium 100, magnesium 1.9. Total bilirubin 0.3, AST is 22, ALT 19, alkaline phosphatase 223. Ammonia 54, creatinine kinase 29. Troponin I 0.01. CRP 23.81. BNP 77. Albumin 3.5, globulin 3.3, lipase 30. Urine shows 1+ protein, 1+ leukocyte esterase, 3+ white blood cells, calcium oxalate crystals, amorphous crystals, bacteria, hyaline casts; negative nitrites and ketones. DIAGNOSTIC STUDIES: Electrocardiogram shows left bundle branch block, ST elevation in V1 and V2 consistent with previous exams. Normal axis, QTc of 488 , rate of 57. No other abnormalities. T-wave inversions in II, aVL, V4, V5, and V6, which were present on previous exam. Brain CT read as no acute intracranial process evident, encephalomalacia related to left frontal lobe tumor resection based on provided history, without significant interval change compared to 2017 exam, consistent with moderate chronic small vessel ischemic disease. Chest x-ray read as low lung volumes, with right greater than left basilar atelectasis. IMPRESSION AND PLAN: Patient is an 82-year-old female with a past medical history significant for developmental delay, seizure disorder, dementia, deep venous thrombosis, recurrent urinary tract infection, and anaplastic oligodendroglioma, who is here with altered mental status, grossly positive urinalysis, and urine indicative of possible urinary tract infection. Patient will be admitted to the hospital for IV antibiotics, IV hydration, and to assess for possible seizure activity. 1. Altered mental status: Patient has underlying dementia, development delay, and seizure disorder, as well as recurrent urinary tract infections with recent diagnosis of urinary tract infection. Patient has never returned to baseline after her diagnosis of urinary tract infection. Patient's urine grew gram- positive bacilli and Enterococcus faecalis. Sensitivities are not available for the gram- positive bacilli. The Enterococcus faecalis is susceptible to Augmentin for which she completed a full course. Patient's repeat culture is pending. Patient will be given ampicillin IV while in the emergency department , while sensitivities and possible repeat growth on urinary culture is pending. Based on results, patient's antibiotic regimen will be adjusted. Patient also has been having poor oral intake. Patient was recently, this past year, admitted to this institution with dehydration and altered mental status, which resolved after fluid administration. We will give normal saline at 100 mL an hour. Patient has already received 1 L and started to improve. We will repeat laboratory data in the morning. Patient has an elevated BUN-creatinine ratio, slightly elevated creatinine, possibly indicating pre-renal acute kidney injury due to dehydration. Patient also has new abnormal movements, which could be due to movements in her sleep or could possibly, but not likely, represent seizure activity. We will get a repeat EEG and a Dilantin level, as it is unknown. It is possible the patient has not been receiving her full dose of Dilantin. Patient had a CT of her head, which did not show new stroke or other cause for her lethargy. Patient has no focal deficits on exam. Patient had an elevated ammonia at 54, which is only 1 point above the reference range. The patient has no history of liver disease. Patient also has an elevated alkaline phosphatase, which has been slowly trending up. This is of unknown etiology. Dilantin can cause increased serum alkaline phosphatase and toxic hepatitis. We will not hold this and we will repeat in the morning. 2. Seizure disorder: Continue Dilantin. Check EEG in the morning. 3. Dementia: Supportive care. 4. History of deep venous thrombosis: Patient is not on anticoagulation. The details of this DVT are not known. We will treat with heparin subcu and SCDs. 5. Recurrent urinary tract infection: We will treat possible recurrent urinary tract infection with ampicillin. We would recommend restarting on Bactrim at discharge. 6. History of anaplastic oligodendroglioma: No signs of recurrence or intracranial pathology on CT. 7. Gastroesophageal reflux disease: Continue omeprazole. 8. Hypothyroidism: Continue levothyroxine. 9. Fluids, Electrolytes, Nutrition: Patient will have regular unrestricted diet and fluids as above. 10. DVT prophylaxis: Heparin subcu and SCDs as above. 11. Code status: Patient will be a DNR. Patient's surrogate decision maker will be [facility] as she has no family members available for decision making. DISPOSITION: Patient is admitted for observation to Medical. TIME SPENT: Approximately 60 minutes were spent on this admission, 30 of which were spent [id number] with the patient obtaining history and physical and discussing treatment plan. ADDENDUM: The patient's phenytoin level came back at 41.7. The patient has no known history of being overdosed on her phenytoin. We will hold the patient's phenytoin, recheck level in the morning. No indication for activated charcoal at this time as the patient's symptoms are chronic and she has no evidence of acute overdose. This is possibly the etiology of the patient's altered mental status. The patient's phenytoin levels have never been elevated like this before. CHRISTIN CARABALLO [id number]/CPS #: [id number]/CPS #: [id number]
[2017-10-24] MEDS: Ampicillin ADVAN(*) 1 GM in NS 0.9% 50 ML* 50 ML IVPB SCH ×5 (00:34→23:19)
[2017-10-24] MEDS: Levothyroxine TAB* 125 MCG TAB PO SCH (05:56)
[2017-10-24] MEDS: Heparin VIAL(*) 5000 UNITS/ML VIAL (FIVE THOUSAND) SUBCUT SCH ×3 (05:56→22:27)
[2017-10-24 07:52] LABS: ABS Basophils 0 10^3/ul (0-0.2); ABS Eosinophils 0.3 10^3/ul (0-0.6); ABS Lymphocytes 1.8 10^3/ul (1.0-4.8); ABS Monocytes 0.5 10^3/ul (0-0.8); ABS Neutrophils 2.5 10^3/ul (1.5-7.7); ABS Nucleated RBC 0 10^3/ul; Eosinophil % 6.6 % (0-6); Hematocrit 33 % (35-47); Lymphocyte % 35.4 % (25-47); Mean Corpuscular HGB Conc 33 g/dl (31-36); Mean Corpuscular Hemoglobin 31 pg (27-31); Mean Corpuscular Volume 93 fL (80-97); Mean Platelet Volume 11.7 um3 (7.4-10.4); Nucleated Red Blood Cells % 0.1; Platelet Count 81 10^3/ul (150-450); Red Blood Count 3.53 10^6/ul (4.0-5.4); Red Cell Distribution Width 15 % (10.5-15); White Blood Count 5.2 10^3/ul (3.5-10.8)
[2017-10-24 08:02] LABS: EGFR Non-African American 65.7 (>60)
[2017-10-24] MEDS: Omeprazole CAP* 20 MG PO SCH (09:32)
[2017-10-24] MEDS: NS 0.9% 1000 ML* 1,000 ML IV SCH (09:32)
[2017-10-24] MEDS: Docusate CAP* 100 MG PO SCH ×2 (09:32→21:13)
--- NOTE | 2017-10-24 13:51 | EEG ---
ELECTROENCEPHALOGRAPHY: DATE OF STUDY: EEG was done and read today which is 10/24/17 - ROOM #402 Patient of CHRISTIN Echevarria CLINICAL PROBLEM: This is an 82-year-old woman with a history of developmental delay, seizure disorder, dementia, recurrent UTIs and an oligodendroglioma status post resection and craniotomy with surgery being to the left frontal area. She has been lethargic for ten days' time. MEDICATIONS: Include: 1. MiraLAX. 2. Zofran. 3. Robitussin. 4. Tylenol. 5. Synthroid. 6. Heparin. 7. Ampicillin. 8. Prilosec. 9. Colace. REPORT: With the patient awake, background cerebral activity consists of moderate amplitude diffuse 5 Hz rhythm of moderate amplitude. There is further slowing in the left frontal head region and on occasion there is left frontal occasional sharp waves. No subclinical seizures were noted. CLINICAL IMPRESSION: This EEG is abnormal because of diffuse slowing of background consistent with an encephalopathy but non specific as to etiology. In addition, there is left frontal slowing which was also seen on an EEG in 2006. This may be secondary to either the craniotomy or underlying structural lesion. Compared to the August 2006 EEG, there is now left frontal sharp waves, would suggest a predisposition to a focal seizure disorder. [id number]/[facility] #: [id number] [facility]
--- NOTE | 2017-10-24 16:11 | PN ---
Subjective Date of Service: 10/24/17 Interval History: phenytonin still elevated at 37.7. Globicatella Sanguinius on previous UCx send out pt not able to make needs known. not eating much. caregiver Marguerite unaware that pt has a seizure disorder. Denies any change to phenytoin dosing (in house since Jul) Objective Active Medications: Acetaminophen (Tylenol Tab*) 650 mg PO Q6H PRN PRN Reason: FEVER/PAIN Docusate Sodium (Colace Cap*) 200 mg PO BID [facility] Last Admin: 10/24/17 09:32 Dose: 200 mg Guaifenesin/Dextromethorphan (Robitussin Dm*) 5 ml PO QID PRN PRN Reason: COUGH Heparin Sodium (Porcine) (Heparin Vial(*)) 5,000 units SUBCUT Q8HR [facility] Last Admin: 10/24/17 14:08 Dose: 5,000 units Ampicillin Sodium 1 gm/ Sodium (Chloride) 50 mls @ 200 mls/hr IVPB Q6H [facility] Last Admin: 10/24/17 12:22 Dose: 200 mls/hr Sodium Chloride (Ns 0.9% 1000 Ml*) 1,000 mls @ 100 mls/hr IV PER RATE [facility] Stop: 10/25/17 06:29 Last Admin: 10/24/17 09:32 Dose: 100 mls/hr Levothyroxine Sodium (Synthroid Tab*) 125 mcg PO DAILY@0600 [facility] Last Admin: 10/24/17 05:56 Dose: 125 mcg Omeprazole (Prilosec Cap*) 20 mg PO DAILY [facility] Last Admin: 10/24/17 09:32 Dose: 20 mg Ondansetron HCl (Zofran Inj*) 4 mg IV Q6H PRN PRN Reason: NAUSEA Polyethylene Glycol/Electrolytes (Miralax*) 17 gm PO DAILY PRN PRN Reason: CONSTIPATION Vital Signs - 8 hr 10/24/17 15:18 Pulse Rate 57 Respiratory 24 Rate Blood Pressure 139/60 (mmHg) O2 Sat by Pulse 99 Oximetry Oxygen Devices in Use Now: None Appearance: asleep but arousable. chronically ill appearing. moans Eyes: No Scleral Icterus Respiratory: Symmetrical Chest Expansion and Respiratory Effort, - - difficult exam as now following commands, no gross rhonchi, rales or wheezing anteriorly. Snoring/groaning upper airway sounds Cardiovascular: NL Sounds; No Murmurs; No JVD, RRR Extremities: No Edema Skin: No Rash or Ulcers Neurological: - - opens eyes, moves UE, not following commands. groans. Lines/Tubes/Other Access: Clean, Dry and Intact Murry Nutrition: Taking PO's Result Diagrams: 10/24/17 07:21 10/24/17 07:21 Additional Lab and Data: Laboratory Results - last 24 hr 10/23/17 10/23/17 10/23/17 16:30 17:06 17:06 WBC RBC Hgb Hct MCV MCH MCHC RDW Plt Count MPV Neut % (Auto) Lymph % (Auto) [place] % (Auto) Eos % (Auto) Baso % (Auto) Absolute Neuts (auto) Absolute Lymphs (auto) Absolute Monos (auto) Absolute Eos (auto) Absolute Basos (auto) Absolute Nucleated RBC Nucleated RBC % Large Platelets Hem Pathologist Commnt Sodium 143 Potassium 4.2 Chloride 104 Carbon Dioxide 33 H Anion Gap 6 BUN 23 Creatinine 1.11 H Est GFR ( Amer) 60.4 Est GFR (Non-Af Amer) 46.9 BUN/Creatinine Ratio 20.7 H Glucose 94 Lactic Acid Calcium 10.0 Magnesium 1.9 Total Bilirubin 0.30 AST 22 ALT 19 Alkaline Phosphatase 223 H Ammonia 54 H Total Creatine Kinase 29 Troponin I 0.01 C-Reactive Protein 22.81 H B-Natriuretic Peptide 77 Total Protein 6.8 Albumin 3.5 Globulin 3.3 Albumin/Globulin Ratio 1.1 Lipase 30 Urine Color Judy Urine Appearance Turbid Urine pH 5.0 Ur Specific [place] 1.019 Urine Protein 1+(30 mg/dl) A Urine Ketones Negative Urine Blood Negative Urine Nitrate Negative Urine Bilirubin Negative Urine Urobilinogen Negative Ur Leukocyte Esterase 1+ A Urine WBC (Auto) 3+(>20/hpf) A Urine RBC (Auto) Absent Ur Squamous Epith Cells Present A Calcium Oxalate Crystal Present A Amorphous Crystals Present A Urine Bacteria 1+ A Hyaline Casts Present A Urine Glucose Negative Urine Ascorbic Acid * A Phenytoin 41.7 H* Blood Type Antibody Screen 10/23/17 10/23/17 10/23/17 17:06 17:06 17:06 WBC 5.5 RBC 3.99 L Hgb 12.4 Hct 37 MCV 94 MCH 31 MCHC 33 RDW 14 Plt Count 92 L MPV 11.9 H Neut % (Auto) 55.9 Lymph % (Auto) 30.0 [place] % (Auto) 7.9 H Eos % (Auto) 5.6 Baso % (Auto) 0.6 Absolute Neuts (auto) 3.1 Absolute Lymphs (auto) 1.7 Absolute Monos (auto) 0.4 Absolute Eos (auto) 0.3 Absolute Basos (auto) 0 Absolute Nucleated RBC 0 Nucleated RBC % 0 Large Platelets Present Hem Pathologist Commnt Sodium Potassium Chloride Carbon Dioxide Anion Gap BUN Creatinine Est GFR ( Amer) Est GFR (Non-Af Amer) BUN/Creatinine Ratio Glucose Lactic Acid 1.2 Calcium Magnesium Total Bilirubin AST ALT Alkaline Phosphatase Ammonia Total Creatine Kinase Troponin I C-Reactive Protein B-Natriuretic Peptide Total Protein Albumin Globulin Albumin/Globulin Ratio Lipase Urine Color Urine Appearance Urine pH Ur Specific [place] Urine Protein Urine Ketones Urine Blood Urine Nitrate Urine Bilirubin Urine Urobilinogen Ur Leukocyte Esterase Urine WBC (Auto) Urine RBC (Auto) Ur Squamous Epith Cells Calcium Oxalate Crystal Amorphous Crystals Urine Bacteria Hyaline Casts Urine Glucose Urine Ascorbic Acid Phenytoin Blood Type O Negative Antibody Screen Negative 10/24/17 10/24/17 10/24/17 07:21 07:21 07:21 WBC 5.2 RBC 3.53 L Hgb 11.0 L Hct 33 L MCV 93 MCH 31 MCHC 33 RDW 15 Plt Count 81 L MPV 11.7 H Neut % (Auto) 48.2 Lymph % (Auto) 35.4 [place] % (Auto) 9.2 H Eos % (Auto) 6.6 H Baso % (Auto) 0.6 Absolute Neuts (auto) 2.5 Absolute Lymphs (auto) 1.8 Absolute Monos (auto) 0.5 Absolute Eos (auto) 0.3 Absolute Basos (auto) 0 Absolute Nucleated RBC 0 Nucleated RBC % 0.1 Large Platelets Hem Pathologist Commnt Sodium 144 Potassium 3.7 Chloride 110 Carbon Dioxide 29 Anion Gap 5 BUN 19 Creatinine 0.83 Est GFR ( Amer) 84.4 Est GFR (Non-Af Amer) 65.7 BUN/Creatinine Ratio 22.9 H Glucose 74 Lactic Acid Calcium 8.9 Magnesium 1.6 L Total Bilirubin AST ALT Alkaline Phosphatase Ammonia 64 H Total Creatine Kinase Troponin I C-Reactive Protein B-Natriuretic Peptide Total Protein Albumin Globulin Albumin/Globulin Ratio Lipase Urine Color Urine Appearance Urine pH Ur Specific [place] Urine Protein Urine Ketones Urine Blood Urine Nitrate Urine Bilirubin Urine Urobilinogen Ur Leukocyte Esterase Urine WBC (Auto) Urine RBC (Auto) Ur Squamous Epith Cells Calcium Oxalate Crystal Amorphous Crystals Urine Bacteria Hyaline Casts Urine Glucose Urine Ascorbic Acid Phenytoin 37.7 H* Blood Type Antibody Screen Assess/Plan/Problems-Billing Assessment: 82 yo female PMH dementia, developmental disorder, anaplastic oligodendroglioma s/p craniotomy/resection, seizure d/o on phenytoin, frequent and recent UTI presenting with AMS, sleeping 34/36 hours. phenytonin elevated to 41.7. ampicillin, potential recurrent UTI. - Patient Problems (1) Altered level of consciousness Current Visit: No Status: Acute Code(s): R40.4 - TRANSIENT ALTERATION OF AWARENESS SNOMED Code(s): 5022168 Comment: Suspected secondary to phenytoin overdose. Initially 41.7. check level daily until below 20. had been 200 BID but suspected had been 200mg daily at some point in last year. sleeping 34/36 hours. UTI may also be contributing. tx as below. (2) Seizure disorder Current Visit: No Status: Acute Code(s): G40.909 - EPILEPSY, UNSP, NOT INTRACTABLE, WITHOUT STATUS EPILEPTICUS SNOMED Code(s): 358659732 Comment: No evidence of seizure activity. Phenytoin level 16.4 today. (3) Hypothyroid Current Visit: No Status: Acute Code(s): E03.9 - HYPOTHYROIDISM, UNSPECIFIED SNOMED Code(s): 69304946 Comment: Continue levothyroxine. (4) UTI (urinary tract infection) Current Visit: No Status: Acute Comment: Has chronic murry. UA with 1+ LE, 3 + wbc, 1+ bacteria. had been on chronic Bactrim regimen. Recent Enterococcus Faecalis and Globicatella Sanguinis UTI s/p tx with cipro then amoxicillin. currently ampcillin. f/u Cx. Status and Disposition: medicine inpatient for phenytonin toxicity/AMS.
[2017-10-24] MEDS ORDERED: Magnesium Sulfate IV* 3 GM in NS 0.9% 100 ML* 100 ML IVPB ONE (16:20)
[2017-10-25] MEDS: Ampicillin ADVAN(*) 1 GM in NS 0.9% 50 ML* 50 ML IVPB SCH ×3 (06:09→18:20)
[2017-10-25] MEDS: Heparin VIAL(*) 5000 UNITS/ML VIAL (FIVE THOUSAND) SUBCUT SCH ×3 (06:10→23:02)
[2017-10-25] MEDS: Levothyroxine TAB* 125 MCG TAB PO SCH (06:14)
[2017-10-25] MEDS: Omeprazole CAP* 20 MG PO SCH (10:11)
[2017-10-25] MEDS: Docusate CAP* 100 MG PO SCH ×2 (10:11→22:24)
--- NOTE | 2017-10-25 10:59 | ED ---
Vincent Almaguer Angela, scribed for Karri Dubose MD on 10/23/17 at 1619 . Altered Mental Status - HPI Summary HPI Summary: This pt is a 82 y/o female presenting to [facility] via EMS for increased altered mental status and lethargy. real estate legal assistant reports the pt has a urinary tract infection and was placed on Ciprofloxacin. PCP then later changed this antibiotic for Amoxicillin. Technology Lead states today is her last day on Amoxicillin and pt has had no relief. Per superintendent service, pt has not been talking and is more lethargic. Per superintendent service, pt usually speaks at baseline. Technology Lead denies fever. Pt has hx of dementia. HPI IS LIMITED DUE TO LEVEL 5 CAVEAT - pt is lethargic. - History Of Current Complaint Chief Complaint: EDWeakness Stated Complaint: POSS. UTI/CONFUSION Time Seen by Provider: 10/23/17 16:06 Hx Obtained From: Family/Technology Lead Hx From Patient Unobtainable Due To: Other - level 5 caveat - pt is lethargic Timing: Lasting Days Severity Currently: Severe Character: Lethargy Aggravating Factor(s): Unknown Alleviating Factor(s): Unknown Associated Signs And Symptoms: Negative: Fever - Allergies/Home Medications Allergies/Adverse Reactions: Allergies Allergy/AdvReac Type Severity Reaction Status Date / Time MS Anesthetics, Letitia Allergy Unknown Unknown Verified 11/13/16 09:41 [Anesthetics, Letitia] Reaction Details MS Procaine [From Novocain] Allergy Unknown Unknown Verified 11/13/16 09:41 Reaction Details Environmental Allergies Allergy Unknown Unknown Uncoded 11/13/16 09:41 Reaction Details tape Allergy See Comment Uncoded 11/13/16 09:41 Home Medications: Home Medications Bifidobacterium Infantis [Align] 4 mg PO BID 10/23/17 [History Confirmed ] Julian/D3/Mag11/Zinc/Batter Out/Dean/Bor [Caltrate 600+D Plus] 1 tab PO DAILY 10/23/17 [ History Confirmed 10/23/17] Ibuprofen [Motrin Ib] 400 mg PO Q4HR PRN 10/23/17 [History Confirmed 10/23/17] Sunscreen Lot Spf 30 1 lotion TOPICAL BID PRN 10/23/17 [History Confirmed ] Trospium (NF) [Sanctura (NF)] 20 mg PO BID 10/23/17 [History Confirmed 10/23/17] PMH/Surg Hx/FS Hx/Imm Hx Endocrine/Hematology History: Reports: Hx Thyroid Disease Denies: Hx Anticoagulant Therapy, Hx Diabetes, Hx Sickle Cell Disease Cardiovascular History: Denies: Hx Hypertension, Hx Pacemaker/ICD Respiratory History: Denies: Hx Asthma, Hx Chronic Obstructive Pulmonary Disease (COPD) GI History: Reports: Hx Gastroesophageal Reflux Disease, Other GI Disorders - constipation Denies: Hx Ulcer History: Reports: Other Problems/Disorders - urinary incontinence, UTI Denies: Hx Renal Disease Musculoskeletal History: Reports: Hx Arthritis - OSTEOARTHRITIS, Hx Osteoporosis - osteopenia, Hx Scoliosis - mild Denies: Other Musculoskeletal History Sensory History: Reports: Hx Cataracts, Hx Contacts or Glasses, Hx Hearing Aid, Hx Hearing Problem Opthamlomology History: Reports: Hx Cataracts, Hx Contacts or Glasses Neurological History: Reports: Hx Dementia, 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 PT UNABLE TO COMMUNICATE, DEMENTIA. LIMITED HISTORY Hx Anesthesia Reactions: No Infectious Disease History: No Infectious Disease History: Denies: Hx Clostridium Difficile, Hx Hepatitis, Hx Human Immunodeficiency Virus (HIV), Hx of Known/Suspected MRSA, Hx Shingles, Hx Tuberculosis, Hx Known/ Suspected VRE, Hx Known/Suspected VRSA, History Other Infectious Disease, Traveled Outside the [place] in Last 30 Days - Family History Known Family History: Negative: Other - breast cancer Family History: No FHx of breast CA - Social History Alcohol Use: None Hx Substance Use: No Substance Use Type: Reports: None Hx Tobacco Use: No Smoking Status (MU): Never Smoked Tobacco Review of Systems - ROS Summary Review of Systems Summary: ROS IS LIMITED DUE TO LEVEL 5 CAVEAT - pt is lethargic Negative: Fever Genitourinary: Other - urinary tract infection Neurological: Other - nonverbal, lethargic, altered mental status All Other Systems Reviewed And Are Negative: No Physical Exam - Summary Physical Exam Summary: VITAL SIGNS: Reviewed. GENERAL: Patient is an elderly and fragile female who is lying comfortable in the stretcher. Patient is not in any acute respiratory distress. Pt is lethargic and obtunded. HEAD AND FACE: No signs of trauma. No ecchymosis, hematomas or skull depressions. No sinus tenderness. EYES: PERRLA, EOMI x 2, No injected conjunctiva, no nystagmus. No photophobia. EARS: Hearing grossly intact. Ear canals and tympanic membranes are within normal limits. MOUTH: Oropharynx within normal limits. NECK: Supple, trachea is midline, no adenopathy, no JVD, no carotid bruit, no c- spine tenderness, neck with full ROM. No meningeal signs, no Kernig's or brudzinskis signs. CHEST: Symmetric, no tenderness at palpation LUNGS: Clear to auscultation bilaterally. No wheezing or crackles. CVS: Regular rate and rhythm, S1 and S2 present, no murmurs or gallops appreciated. ABDOMEN: Soft, non-tender. No signs of distention. No rebound no guarding, and no masses palpated. Bowel sounds are normal. EXTREMITIES: FROM in all major joints, no edema, no cyanosis or clubbing. NEURO: No acute neurological deficits. Speech is normal and follows commands. SKIN: Dry and warm. Pt seems to be dehydrated because of the increased skin turgor. GCS: 13 Triage Information Reviewed: Yes Vital Signs On Initial Exam: Initial Vitals Temp Pulse Resp BP Pulse Ox 96.1 F 57 16 119/49 96 10/23/17 15:44 10/23/17 15:44 10/23/17 15:44 10/23/17 15:44 10/23/17 15:44 Vital Signs Reviewed: Yes Completion Of Physical Exam Limited Due To: Level 5 - pt is lethargic Diagnostics - Vital Signs Vital Signs Temp Pulse Resp BP Pulse Ox 10/23/17 15:44 96.1 F 57 16 119/49 96 - Laboratory Result Diagrams: 10/23/17 17:06 10/23/17 17:06 Lab Statement: Any lab studies that have been ordered have been reviewed, and results considered in the medical decision making process. - Radiology Chest XR Xray Interpretation: Positive (See Comments) - IMPRESSION: Low lung volumes with RIGHT greater than LEFT basilar atelectasis. Dr. Dubose has reviewed this radiology report. Radiology Interpretation Completed By: Radiologist - CT Brain CT CT Interpretation: No Acute Changes - IMPRESSION: 1. No acute intracranial process evident. 2. 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 3. Stigmata of chronic small vessel ischemic disease. Dr. Dubose has reviewed this radiology report. CT Interpretation Completed By: Radiologist - EKG 18:08 Cardiac Rate: Bradycardia EKG Rhythm: Sinus Bradycardia - at 57 bpm EKG Interpretation: Left bundle branch block. Altered Mental Statu Course/Dx - Course Assessment/Plan: This pt is a 82 y/o female presenting to [facility] via EMS for increased altered mental status and lethargy. real estate legal assistant reports the pt has a urinary tract infection and was placed on Ciprofloxacin. PCP then later changed this antibiotic for Amoxicillin. Technology Lead states today is her last day on Amoxicillin and pt has had no relief. Per superintendent service, pt has not been talking and is more lethargic. Per superintendent service, pt usually speaks at baseline. Technology Lead denies fever. Pt has hx of dementia. HPI IS LIMITED DUE TO LEVEL 5 CAVEAT - pt is lethargic. Test results without any significant abnormalities except for creatinine of 1.1, CRP of 22.81, Urinalysis is contaminated. Chest XR: Low lung volumes with RIGHT greater than LEFT basilar atelectasis. The pt is still very lethargic as per niece. Niece reports the pt is not at baseline, she is still very confused, and nonverbal, pt is usually verbal. Pt is alert. I ordered a CT of the brain because of the pts weakness. Brain CT shows 1. No acute intracranial process evident. 2. 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 3. Stigmata of chronic small vessel ischemic disease. After reviewing the microbiology of the urine culture the pt is susceptible to Ampicillin, therefore the pt was given IV fluids and one dose of ampicillin. I discussed test results and findings with Dr. Hairston, hospitalist , who accepted the pt for admission. Pt is hemodynamically stable, alert but not oriented. - Diagnoses Provider Diagnoses: Urinary tract infection - Provider Notifications Discussed Care Of Patient With: Christopher Hairston Time Discussed With Above Provider: 18:44 Instructed by Provider To: Other - I discussed pt care with Dr. Hairston, hospitalist, who has agreed to admit the pt. Discharge - Sign-Out/Discharge Documenting (check all that apply): Discharge - admit to [facility] [place] - Discharge Plan Condition: Stable Disposition: ADMITTED TO [facility] Referrals: Carmen Ramirez MD [Primary Care Provider] - The documentation as recorded by the Vincent tam Angela accurately reflects the service I personally performed and the decisions made by me, Karri Dubose MD.
[2017-10-25 14:09] LABS: ABS Basophils 0 10^3/ul (0-0.2); ABS Eosinophils 0.3 10^3/ul (0-0.6); ABS Lymphocytes 1.4 10^3/ul (1.0-4.8); ABS Monocytes 0.4 10^3/ul (0-0.8); ABS Neutrophils 3.5 10^3/ul (1.5-7.7); ABS Nucleated RBC 0 10^3/ul; Eosinophil % 4.6 % (0-6); Hematocrit 33 % (35-47); Hemoglobin 10.7 g/dl (12.0-16.0); Lymphocyte % 24.4 % (25-47); Mean Corpuscular HGB Conc 33 g/dl (31-36); Mean Corpuscular Hemoglobin 31 pg (27-31); Mean Corpuscular Volume 94 fL (80-97); Mean Platelet Volume 11.3 um3 (7.4-10.4); Nucleated Red Blood Cells % 0.2; Platelet Count 97 10^3/ul (150-450); Red Blood Count 3.45 10^6/ul (4.0-5.4); Red Cell Distribution Width 14 % (10.5-15); White Blood Count 5.6 10^3/ul (3.5-10.8)
[2017-10-25 14:28] LABS: EGFR Non-African American 55.5 (>60)
--- NOTE | 2017-10-25 15:11 | RAD ---
HISTORY: Hypoxia COMPARISONS: October 23, 2017 VIEWS: 1: frontal portable view of the chest at 1:53 PM FINDINGS: LINES AND TUBES: None. CARDIOMEDIASTINAL SILHOUETTE: The cardiomediastinal silhouette is normal for portable technique. PLEURA: The costophrenic angles are sharp. No pleural abnormalities are noted. LUNG PARENCHYMA: The lung volumes are low. The lungs are clear accounting for the phase of respiration. ABDOMEN: The upper abdomen is clear. There is no subphrenic gas. BONES AND SOFT TISSUES: No bone or soft tissue abnormalities are noted. IMPRESSION: LOW LUNG VOLUMES. NO ACTIVE CARDIOPULMONARY DISEASE.
--- NOTE | 2017-10-25 17:23 | PN ---
Subjective Date of Service: 10/25/17 Interval History: opens eyes to sternal rub. hypoxic to 2L needed. phenytonin still 31. CXR no infiltrate. seems to have been on this dose for quite a while UCx with E Faecalis still MRSA nares negative. Objective Active Medications: Acetaminophen (Tylenol Tab*) 650 mg PO Q6H PRN PRN Reason: FEVER/PAIN Docusate Sodium (Colace Cap*) 200 mg PO BID [facility] Last Admin: 10/25/17 10:11 Dose: Not Given Guaifenesin/Dextromethorphan (Robitussin Dm*) 5 ml PO QID PRN PRN Reason: COUGH Heparin Sodium (Porcine) (Heparin Vial(*)) 5,000 units SUBCUT Q8HR [facility] Last Admin: 10/25/17 14:56 Dose: 5,000 units Ampicillin Sodium 1 gm/ Sodium (Chloride) 50 mls @ 200 mls/hr IVPB Q6H [facility] Last Admin: 10/25/17 12:30 Dose: 200 mls/hr Levothyroxine Sodium (Synthroid Tab*) 125 mcg PO DAILY@0600 [facility] Last Admin: 10/25/17 06:14 Dose: 125 mcg Omeprazole (Prilosec Cap*) 20 mg PO DAILY [facility] Last Admin: 10/25/17 10:11 Dose: Not Given Ondansetron HCl (Zofran Inj*) 4 mg IV Q6H PRN PRN Reason: NAUSEA Polyethylene Glycol/Electrolytes (Miralax*) 17 gm PO DAILY PRN PRN Reason: CONSTIPATION Vital Signs - 8 hr 10/25/17 10/25/17 10/25/17 10:13 12:32 12:35 Temperature 100.0 F Pulse Rate 92 Respiratory 16 18 Rate Blood Pressure 129/55 (mmHg) O2 Sat by Pulse 85 93 Oximetry 10/25/17 13:38 Temperature 98.6 F Pulse Rate Respiratory Rate Blood Pressure (mmHg) O2 Sat by Pulse Oximetry Oxygen Devices in Use Now: None Appearance: chronically ill appearing. asleep. arousable to sternal rub. Eyes: - - horizontal nystagmus Respiratory: Symmetrical Chest Expansion and Respiratory Effort, Clear to Auscultation Cardiovascular: NL Sounds; No Murmurs; No JVD, RRR Abdominal: NL Sounds; No Tenderness; No Distention, No Hepatosplenomegaly Extremities: No Edema, No Clubbing, Cyanosis Skin: No Rash or Ulcers, No Nodules or Sclerosis Neurological: - - moans and moves to sternal rub. Nutrition: Taking PO's Result Diagrams: 10/25/17 13:32 10/25/17 13:32 Additional Lab and Data: Laboratory Results - last 24 hr 10/25/17 10/25/17 10/25/17 05:34 13:32 13:32 WBC 5.6 RBC 3.45 L Hgb 10.7 L Hct 33 L MCV 94 MCH 31 MCHC 33 RDW 14 Plt Count 97 L MPV 11.3 H Neut % (Auto) 63.2 Lymph % (Auto) 24.4 L [place] % (Auto) 7.4 H Eos % (Auto) 4.6 Baso % (Auto) 0.4 Absolute Neuts (auto) 3.5 Absolute Lymphs (auto) 1.4 Absolute Monos (auto) 0.4 Absolute Eos (auto) 0.3 Absolute Basos (auto) 0 Absolute Nucleated RBC 0 Nucleated RBC % 0.2 Sodium Potassium Chloride Carbon Dioxide Anion Gap BUN Creatinine Est GFR ( Amer) Est GFR (Non-Af Amer) BUN/Creatinine Ratio Glucose Calcium Magnesium Total Bilirubin AST ALT Alkaline Phosphatase Ammonia Total Protein Albumin Globulin Albumin/Globulin Ratio Procalcitonin < 0.1 Phenytoin 31.7 H* 10/25/17 10/25/17 13:32 13:32 WBC RBC Hgb Hct MCV MCH MCHC RDW Plt Count MPV Neut % (Auto) Lymph % (Auto) [place] % (Auto) Eos % (Auto) Baso % (Auto) Absolute Neuts (auto) Absolute Lymphs (auto) Absolute Monos (auto) Absolute Eos (auto) Absolute Basos (auto) Absolute Nucleated RBC Nucleated RBC % Sodium 144 Potassium 4.0 Chloride 109 Carbon Dioxide 25 Anion Gap 10 BUN 17 Creatinine 0.96 H Est GFR ( Amer) 71.4 Est GFR (Non-Af Amer) 55.5 BUN/Creatinine Ratio 17.7 Glucose 77 Calcium 8.8 Magnesium 2.2 Total Bilirubin 0.30 AST 23 ALT 16 Alkaline Phosphatase 195 H Ammonia 69 H Total Protein 5.9 L Albumin 3.0 L Globulin 2.9 Albumin/Globulin Ratio 1.0 Procalcitonin Phenytoin Microbiology and Other Data: Microbiology 10/23/17 17:06 Blood Venous Aerobic Blood Culture - Preliminary No Growth Day 2 04/10/18 17:06 Blood Venous Anaerobic Blood Culture - Preliminary No Growth Day 2 10/23/17 17:06 Blood Venous Aerobic Blood Culture - Preliminary No Growth Day 2 10/23/17 17:06 Blood Venous Anaerobic Blood Culture - Preliminary No Growth Day 2 10/23/17 16:30 Urine Urine Culture - Preliminary Enterococcus Faecalis 10/25/17 11:30 Nasal Nasal Screen MRSA (PCR)(RAHEEL) - Final Mrsa Not Detected Assess/Plan/Problems-Billing Assessment: 82 yo female PMH dementia, developmental disorder, anaplastic oligodendroglioma s/p craniotomy/resection, seizure d/o on phenytoin, frequent and recent UTI presenting with AMS, sleeping 34/36 hours. phenytonin elevated to 41.7. ampicillin, recurrent E Faecalis UTI. - Patient Problems (1) Altered level of consciousness Current Visit: No Status: Acute Code(s): R40.4 - TRANSIENT ALTERATION OF AWARENESS SNOMED Code(s): 2428031 Comment: Suspected secondary to phenytoin overdose. Initially 41.7. check level daily until below 20. had been 200 BID and seems like stable dose for more than 2 years. last known level 2015. does have interactions with bactrim but also has been on that for more than 2 years it seems. E Faecalis UTI may also be contributing. tx as below. (2) Seizure disorder Current Visit: No Status: Acute Code(s): G40.909 - EPILEPSY, UNSP, NOT INTRACTABLE, WITHOUT STATUS EPILEPTICUS SNOMED Code(s): 870073041 Comment: Phenytoin level 31.7. (3) Hypothyroid Current Visit: No Status: Acute Code(s): E03.9 - HYPOTHYROIDISM, UNSPECIFIED SNOMED Code(s): 97971747 Comment: Continue levothyroxine. (4) UTI (urinary tract infection) Current Visit: No Status: Acute Comment: Has chronic murry. UA with 1+ LE, 3 + wbc, 1+ bacteria. had been on chronic Bactrim regimen. Recent Enterococcus Faecalis and Globicatella Sanguinis UTI s/p tx with cipro then amoxicillin. currently ampcillin. f/u Cx-> E Faecalis >100K. f/u speciation. Status and Disposition: medicine inpatient for phenytonin toxicity/AMS.
[2017-10-26] MEDS: Ampicillin ADVAN(*) 1 GM in NS 0.9% 50 ML* 50 ML IVPB SCH ×5 (00:28→22:48)
[2017-10-26] MEDS: Levothyroxine TAB* 125 MCG TAB PO SCH (04:55)
[2017-10-26] MEDS: Heparin VIAL(*) 5000 UNITS/ML VIAL (FIVE THOUSAND) SUBCUT SCH ×3 (05:59→22:53)
[2017-10-26] MEDS: Omeprazole CAP* 20 MG PO SCH (09:50)
[2017-10-26] MEDS: Docusate CAP* 100 MG PO SCH ×2 (09:50→22:49)
--- NOTE | 2017-10-26 16:36 | PN ---
Subjective Date of Service: 10/26/17 Interval History: Still very lethargic. phenytoin level actually went up. Afebrile. Na to 147. not alert enough to take po meds or eating. D5W started. Objective Active Medications: Acetaminophen (Tylenol Tab*) 650 mg PO Q6H PRN PRN Reason: FEVER/PAIN Docusate Sodium (Colace Cap*) 200 mg PO BID [facility] Last Admin: 10/26/17 09:50 Dose: Not Given Guaifenesin/Dextromethorphan (Robitussin Dm*) 5 ml PO QID PRN PRN Reason: COUGH Heparin Sodium (Porcine) (Heparin Vial(*)) 5,000 units SUBCUT Q8HR [facility] Last Admin: 10/26/17 12:40 Dose: 5,000 units Ampicillin Sodium 1 gm/ Sodium (Chloride) 50 mls @ 200 mls/hr IVPB Q6H [facility] Last Admin: 10/26/17 12:40 Dose: 200 mls/hr Levothyroxine Sodium (Synthroid Tab*) 125 mcg PO DAILY@0600 [facility] Last Admin: 10/26/17 04:55 Dose: Not Given Omeprazole (Prilosec Cap*) 20 mg PO DAILY [facility] Last Admin: 10/26/17 09:50 Dose: Not Given Ondansetron HCl (Zofran Inj*) 4 mg IV Q6H PRN PRN Reason: NAUSEA Polyethylene Glycol/Electrolytes (Miralax*) 17 gm PO DAILY PRN PRN Reason: CONSTIPATION Vital Signs - 8 hr 10/26/17 13:19 Temperature 96.9 F Pulse Rate 69 Respiratory 12 Rate Blood Pressure 145/54 (mmHg) O2 Sat by Pulse 100 Oximetry Oxygen Devices in Use Now: Nasal Cannula Appearance: NAD Eyes: No Scleral Icterus, PERRLA Ears/Nose/Mouth/Throat: NL Teeth, Lips, Gums, Mucous Membranes Moist Respiratory: Symmetrical Chest Expansion and Respiratory Effort Cardiovascular: NL Sounds; No Murmurs; No JVD Abdominal: NL Sounds; No Tenderness; No Distention, No Hepatosplenomegaly Extremities: No Edema Skin: No Rash or Ulcers Neurological: - - groans and grimaces to sternal rub. LE responsive to tactile stimuli. Result Diagrams: 10/25/17 13:32 10/26/17 05:31 Additional Lab and Data: Laboratory Results - last 24 hr 10/26/17 10/26/17 05:31 10:19 Sodium 147 H Ammonia 63 H Phenytoin 35.0 H* Microbiology and Other Data: Microbiology 10/23/17 16:30 Urine Urine Culture - Preliminary Enterococcus Faecalis 10/23/17 17:06 Blood Venous Aerobic Blood Culture - Preliminary No Growth Day 2 10/23/17 17:06 Blood Venous Anaerobic Blood Culture - Preliminary No Growth Day 2 10/23/17 17:06 Blood Venous Aerobic Blood Culture - Preliminary No Growth Day 2 10/23/17 17:06 Blood Venous Anaerobic Blood Culture - Preliminary No Growth Day 2 10/25/17 11:30 Nasal Nasal Screen MRSA (PCR)(RAHEEL) - Final Mrsa Not Detected Assess/Plan/Problems-Billing Assessment: 82 yo female PMH dementia, developmental disorder, anaplastic oligodendroglioma s/p craniotomy/resection, seizure d/o on phenytoin, frequent and recent UTI presenting with AMS, sleeping 34/36 hours. phenytonin elevated to 41.7 and still elevated. On ampicillin for recurrent E Faecalis UTI. - Patient Problems (1) Altered level of consciousness Current Visit: No Status: Acute Code(s): R40.4 - TRANSIENT ALTERATION OF AWARENESS SNOMED Code(s): 7457545 Comment: Suspected secondary to phenytoin overdose. Initially 41.7. check level daily until below 20. had been 200 BID and seems like stable dose for more than 2 years. last known level 2015. does have interactions with her chronic bactrim for which she seems to have been on for more than 2 years it seems. E Faecalis UTI may also be contributing. tx as below. (2) Seizure disorder Current Visit: No Status: Acute Code(s): G40.909 - EPILEPSY, UNSP, NOT INTRACTABLE, WITHOUT STATUS EPILEPTICUS SNOMED Code(s): 155334766 Comment: Phenytoin level 35 no seizures on spot EEG at admission. (3) Hypothyroid Current Visit: No Status: Acute Code(s): E03.9 - HYPOTHYROIDISM, UNSPECIFIED SNOMED Code(s): 04333086 Comment: Continue levothyroxine. (4) UTI (urinary tract infection) Current Visit: No Status: Acute Comment: Has chronic murry. UA with 1+ LE, 3 + wbc, 1+ bacteria. had been on chronic Bactrim regimen. Recent Enterococcus Faecalis and Globicatella Sanguinis UTI s/p tx with cipro then amoxicillin. currently ampcillin. f/u Cx-> E Faecalis >100K. f/u speciation. Status and Disposition: medicine inpatient for phenytonin toxicity/AMS.
[2017-10-26] MEDS: D5W 1000 ML BAG* 1,000 ML IV SCH (16:54)
[2017-10-27] MEDS: Levothyroxine TAB* 125 MCG TAB PO SCH (05:14)
[2017-10-27] MEDS: Ampicillin ADVAN(*) 1 GM in NS 0.9% 50 ML* 50 ML IVPB SCH ×3 (05:14→17:01)
[2017-10-27] MEDS: Heparin VIAL(*) 5000 UNITS/ML VIAL (FIVE THOUSAND) SUBCUT SCH ×3 (05:14→22:39)
[2017-10-27 07:14] LABS: EGFR Non-African American 76.1 (>60)
[2017-10-27] MEDS: Docusate CAP* 100 MG PO SCH ×2 (08:00→22:40)
[2017-10-27] MEDS: D5W 1000 ML BAG* 1,000 ML IV SCH (08:00)
[2017-10-27] MEDS: Omeprazole CAP* 20 MG PO SCH (08:00)
[2017-10-27] MEDS: Polyethylene Glycol 3350* 17 GM PACKET PO PRN (09:36)
--- NOTE | 2017-10-27 16:58 | PN ---
Subjective Date of Service: 10/27/17 Interval History: put on D5W after hypernatremic 147 yesterday afternoon. Na down to 142 and D5W stopped. Much more alert today. Opening eyes, verbalizing to aide from [employer]. Ate food. phenytoin level down today 29.4 from 35. Objective Active Medications: Acetaminophen (Tylenol Tab*) 650 mg PO Q6H PRN PRN Reason: FEVER/PAIN Docusate Sodium (Colace Cap*) 200 mg PO BID [facility] Last Admin: 10/27/17 08:00 Dose: 200 mg Guaifenesin/Dextromethorphan (Robitussin Dm*) 5 ml PO QID PRN PRN Reason: COUGH Heparin Sodium (Porcine) (Heparin Vial(*)) 5,000 units SUBCUT Q8HR [facility] Last Admin: 10/27/17 14:03 Dose: 5,000 units Ampicillin Sodium 1 gm/ Sodium (Chloride) 50 mls @ 200 mls/hr IVPB Q6H [facility] Last Admin: 10/27/17 11:58 Dose: 200 mls/hr Levothyroxine Sodium (Synthroid Tab*) 125 mcg PO DAILY@0600 [facility] Last Admin: 10/27/17 05:14 Dose: Not Given Omeprazole (Prilosec Cap*) 20 mg PO DAILY [facility] Last Admin: 10/27/17 08:00 Dose: 20 mg Ondansetron HCl (Zofran Inj*) 4 mg IV Q6H PRN PRN Reason: NAUSEA Polyethylene Glycol/Electrolytes (Miralax*) 17 gm PO DAILY PRN PRN Reason: CONSTIPATION Last Admin: 10/27/17 09:36 Dose: 17 gm Vital Signs - 8 hr 10/27/17 10/27/17 12:48 14:49 Temperature 96.6 F 96.4 F Pulse Rate 61 60 Respiratory 22 20 Rate Blood Pressure 168/76 148/60 (mmHg) O2 Sat by Pulse 99 93 Oximetry Oxygen Devices in Use Now: Nasal Cannula Appearance: NAD. eyes open, tongue out. Eyes: No Scleral Icterus, PERRLA Neck: NL Appearance and Movements; NL JVP, Trachea Midline Respiratory: - - some referred upper airway sounds. no rhonchi or rales. Cardiovascular: NL Sounds; No Murmurs; No JVD, RRR Extremities: No Edema Skin: No Rash or Ulcers, No Nodules or Sclerosis Neurological: - - able to squeeze hand of aide and trying to verbalize to her though very difficult to understand. Nutrition: Taking PO's Result Diagrams: 10/25/17 13:32 10/27/17 06:28 Additional Lab and Data: Laboratory Results - last 24 hr 10/27/17 06:28 Sodium 142 Potassium 3.5 Chloride 109 Carbon Dioxide 25 Anion Gap 8 BUN 20 Creatinine 0.73 Est GFR ( Amer) 97.9 Est GFR (Non-Af Amer) 76.1 BUN/Creatinine Ratio 27.4 H Glucose 104 H Calcium 8.6 Phenytoin 29.4 H Microbiology and Other Data: Microbiology 10/23/17 16:30 Urine Urine Culture - Final Enterococcus Faecalis 10/23/17 17:06 Blood Venous Aerobic Blood Culture - Preliminary No Growth Day 3 10/23/17 17:06 Blood Venous Anaerobic Blood Culture - Preliminary No Growth Day 3 10/23/17 17:06 Blood Venous Aerobic Blood Culture - Preliminary No Growth Day 3 10/23/17 17:06 Blood Venous Anaerobic Blood Culture - Preliminary No Growth Day 3 10/25/17 11:30 Nasal Nasal Screen MRSA (PCR)(RAHEEL) - Final Mrsa Not Detected Assess/Plan/Problems-Billing Assessment: 82 yo female PMH dementia, developmental disorder, anaplastic oligodendroglioma s/p craniotomy/resection, seizure d/o on phenytoin, frequent and recent UTI presenting with AMS, sleeping 34/36 hours. phenytonin elevated to 41.7 and still elevated though trending down with improvement in mental status. On ampicillin for recurrent E Faecalis UTI. - Patient Problems (1) Altered level of consciousness Current Visit: No Status: Acute Code(s): R40.4 - TRANSIENT ALTERATION OF AWARENESS SNOMED Code(s): 0716420 Comment: Suspected secondary to phenytoin overdose. Initially 41.7. check level daily until below 20. had been 200 BID and seems like stable dose for more than 2 years. last known level 2015. does have interactions with her chronic bactrim for which she seems to have been on for more than 2 years it seems. down to 29.4 10/27. E Faecalis UTI may also be contributing. tx as below. (2) Seizure disorder Current Visit: No Status: Acute Code(s): G40.909 - EPILEPSY, UNSP, NOT INTRACTABLE, WITHOUT STATUS EPILEPTICUS SNOMED Code(s): 711018379 Comment: Phenytoin level 29 no seizures on spot EEG at admission. (3) Hypothyroid Current Visit: No Status: Acute Code(s): E03.9 - HYPOTHYROIDISM, UNSPECIFIED SNOMED Code(s): 14104419 Comment: Continue levothyroxine. (4) UTI (urinary tract infection) Current Visit: No Status: Acute Comment: Has chronic murry. UA with 1+ LE, 3 + wbc, 1+ bacteria. had been on chronic Bactrim regimen. Recent Enterococcus Faecalis and Globicatella Sanguinis UTI s/p tx with cipro then amoxicillin. currently ampcillin. f/u Cx-> E Faecalis >100K. f/u speciation. (5) Hypernatremia Current Visit: Yes Status: Acute Code(s): E87.0 - HYPEROSMOLALITY AND HYPERNATREMIA SNOMED Code(s): 56811834 Comment: resolved with D5W overnight 10/26->10/27. now stopped and taking po again. (6) Brain tumor Current Visit: No Status: Acute Code(s): D49.6 - NEOPLASM OF UNSPECIFIED BEHAVIOR OF BRAIN SNOMED Code(s): 982389143 Comment: L frontal lobe brain tumor resected 2004. (7) DVT prophylaxis Current Visit: No Status: Acute Code(s): [id number] - SNOMED Code(s): 533498532 Comment: Heparin SQ. (8) Mental retardation Current Visit: No Status: Acute Code(s): F79 - UNSPECIFIED INTELLECTUAL DISABILITIES SNOMED Code(s): 097557026 Comment: Resident of [facility] and DNR. Status and Disposition: medicine inpatient for phenytonin toxicity/AMS.
[2017-10-28] MEDS: Ampicillin ADVAN(*) 1 GM in NS 0.9% 50 ML* 50 ML IVPB SCH ×4 (00:01→18:00)
[2017-10-28] MEDS: Levothyroxine TAB* 125 MCG TAB PO SCH (05:06)
[2017-10-28] MEDS: Heparin VIAL(*) 5000 UNITS/ML VIAL (FIVE THOUSAND) SUBCUT SCH ×3 (05:06→21:03)
[2017-10-28 07:18] LABS: EGFR Non-African American 93.7 (>60)
[2017-10-28] MEDS: KCL 10 MEQ/50 ML IVPREMIX* 10 MEQ/50 ML BAG IV SCH ×2 (09:37→13:01)
[2017-10-28] MEDS: Polyethylene Glycol 3350* 17 GM PACKET PO PRN (09:37)
[2017-10-28] MEDS: Omeprazole CAP* 20 MG PO SCH (09:37)
[2017-10-28] MEDS: Docusate CAP* 100 MG PO SCH ×2 (09:37→19:40)
--- NOTE | 2017-10-28 17:38 | PN ---
Subjective Date of Service: 10/28/17 Interval History: Patient alert and awake. Per nursing staff and personal aide at bedside patient was more awake today but is continuing to sleep more than normal. Objective Active Medications: Acetaminophen (Tylenol Tab*) 650 mg PO Q6H PRN PRN Reason: FEVER/PAIN Docusate Sodium (Colace Cap*) 200 mg PO BID [facility] Last Admin: 10/28/17 09:37 Dose: 200 mg Guaifenesin/Dextromethorphan (Robitussin Dm*) 5 ml PO QID PRN PRN Reason: COUGH Heparin Sodium (Porcine) (Heparin Vial(*)) 5,000 units SUBCUT Q8HR [facility] Last Admin: 10/28/17 15:54 Dose: 5,000 units Ampicillin Sodium 1 gm/ Sodium (Chloride) 50 mls @ 200 mls/hr IVPB Q6H [facility] Last Admin: 10/28/17 12:17 Dose: 200 mls/hr Levothyroxine Sodium (Synthroid Tab*) 125 mcg PO DAILY@0600 [facility] Last Admin: 10/28/17 05:06 Dose: 125 mcg Omeprazole (Prilosec Cap*) 20 mg PO DAILY [facility] Last Admin: 10/28/17 09:37 Dose: 20 mg Ondansetron HCl (Zofran Inj*) 4 mg IV Q6H PRN PRN Reason: NAUSEA Polyethylene Glycol/Electrolytes (Miralax*) 17 gm PO DAILY PRN PRN Reason: CONSTIPATION Last Admin: 10/28/17 09:37 Dose: 17 gm Vital Signs - 8 hr 10/28/17 10/28/17 11:34 15:41 Temperature 96.7 F 97.1 F Pulse Rate 61 62 Respiratory 16 16 Rate Blood Pressure 127/53 118/39 (mmHg) O2 Sat by Pulse 98 98 Oximetry Oxygen Devices in Use Now: Nasal Cannula Appearance: elderly female nonverbal sitting up in bed watching tv alert Eyes: No Scleral Icterus, PERRLA Ears/Nose/Mouth/Throat: NL Teeth, Lips, Gums Respiratory: Symmetrical Chest Expansion and Respiratory Effort, Clear to Auscultation Cardiovascular: NL Sounds; No Murmurs; No JVD, RRR Abdominal: NL Sounds; No Tenderness; No Distention Lymphatic: No Cervical Adenopathy Extremities: No Edema, No Clubbing, Cyanosis Skin: No Rash or Ulcers, No Nodules or Sclerosis Neurological: - - alert Lines/Tubes/Other Access: Clean, Dry and Intact Peripheral IV Nutrition: Taking PO's Result Diagrams: 10/25/17 13:32 10/28/17 06:29 Additional Lab and Data: Laboratory Results - last 24 hr 10/27/17 06:28 Sodium 142 Potassium 3.5 Chloride 109 Carbon Dioxide 25 Anion Gap 8 BUN 20 Creatinine 0.73 Est GFR ( Amer) 97.9 Est GFR (Non-Af Amer) 76.1 BUN/Creatinine Ratio 27.4 H Glucose 104 H Calcium 8.6 Phenytoin 29.4 H Microbiology and Other Data: Microbiology 10/23/17 16:30 Urine Urine Culture - Final Enterococcus Faecalis 10/23/17 17:06 Blood Venous Aerobic Blood Culture - Preliminary No Growth Day 3 10/23/17 17:06 Blood Venous Anaerobic Blood Culture - Preliminary No Growth Day 3 10/23/17 17:06 Blood Venous Aerobic Blood Culture - Preliminary No Growth Day 3 10/23/17 17:06 Blood Venous Anaerobic Blood Culture - Preliminary No Growth Day 3 10/25/17 11:30 Nasal Nasal Screen MRSA (PCR)(RAHEEL) - Final Mrsa Not Detected Assess/Plan/Problems-Billing Assessment: 82 yo female PMH dementia, developmental disorder, anaplastic oligodendroglioma s/p craniotomy/resection, seizure d/o on phenytoin, frequent and recent UTI presenting with AMS, sleeping 34/36 hours. phenytonin elevated to 41.7 and still elevated though trending down with improvement in mental status. On ampicillin for recurrent E Faecalis UTI. - Patient Problems (1) Altered level of consciousness Comment: Suspected secondary to phenytoin overdose. Initially 41.7. check level daily until below 20. Had been 200 BID and seems like stable dose for more than 2 years. last known level 2015. does have interactions with her chronic bactrim for which she seems to have been on for more than 2 years it seems. down to 26.3 10/27. E Faecalis UTI may also be contributing. (2) Seizure disorder Comment: Phenytoin level 29 no seizures on spot EEG at admission. (3) Electrolyte abnormality Comment: - replace mag and K+ - recheck in am (4) Hypernatremia Comment: Stable. resolved with D5W overnight 10/26->10/27. Taking po again. (5) Brain tumor Comment: L frontal lobe brain tumor resected 2004. (6) UTI (urinary tract infection) Comment: Has chronic murry. UA with 1+ LE, 3+ wbc, 1+ bacteria. had been on chronic Bactrim regimen. Recent Enterococcus Faecalis and Globicatella Sanguinis UTI s/p tx with cipro then amoxicillin. Currently on ampcillin. f/u Cx-> E Faecalis >100K. f/u RAHEEL (7) Hypothyroid Comment: Continue levothyroxine. (8) Mental retardation Comment: Resident of [facility] and DNR. (9) DVT prophylaxis Comment: Heparin SQ. Status and Disposition: medicine inpatient for phenytonin toxicity/AMS.
[2017-10-28] MEDS ORDERED: Magnesium Sulfate 2 GM IV* 2 GM/50 ML BAG IVPB ONE (17:59)
[2017-10-29] MEDS: Ampicillin ADVAN(*) 1 GM in NS 0.9% 50 ML* 50 ML IVPB SCH ×5 (00:07→23:48)
[2017-10-29] MEDS: Heparin VIAL(*) 5000 UNITS/ML VIAL (FIVE THOUSAND) SUBCUT SCH ×3 (06:10→21:40)
[2017-10-29] MEDS: Levothyroxine TAB* 125 MCG TAB PO SCH (06:10)
[2017-10-29 07:42] LABS: EGFR Non-African American 93.7 (>60)
[2017-10-29] MEDS: Docusate CAP* 100 MG PO SCH ×2 (08:30→20:25)
[2017-10-29] MEDS: Omeprazole CAP* 20 MG PO SCH (08:31)
--- NOTE | 2017-10-29 09:43 | PN ---
Subjective Date of Service: 10/29/17 Interval History: Patient seen and examined. Aid/business services assistant at bedside. Patient asleep, easily aroused. Per aid, she is almost at her baseline. No acute overnight events, non- verbal at baseline. Objective Active Medications: Acetaminophen (Tylenol Tab*) 650 mg PO Q6H PRN PRN Reason: FEVER/PAIN Docusate Sodium (Colace Cap*) 200 mg PO BID [facility] Last Admin: 10/29/17 08:30 Dose: 200 mg Guaifenesin/Dextromethorphan (Robitussin Dm*) 5 ml PO QID PRN PRN Reason: COUGH Heparin Sodium (Porcine) (Heparin Vial(*)) 5,000 units SUBCUT Q8HR [facility] Last Admin: 10/29/17 06:10 Dose: 5,000 units Ampicillin Sodium 1 gm/ Sodium (Chloride) 50 mls @ 200 mls/hr IVPB Q6H [facility] Last Admin: 10/29/17 06:07 Dose: 200 mls/hr Levothyroxine Sodium (Synthroid Tab*) 125 mcg PO DAILY@0600 [facility] Last Admin: 10/29/17 06:10 Dose: 125 mcg Omeprazole (Prilosec Cap*) 20 mg PO DAILY [facility] Last Admin: 10/29/17 08:31 Dose: 20 mg Ondansetron HCl (Zofran Inj*) 4 mg IV Q6H PRN PRN Reason: NAUSEA Polyethylene Glycol/Electrolytes (Miralax*) 17 gm PO DAILY PRN PRN Reason: CONSTIPATION Last Admin: 10/28/17 09:37 Dose: 17 gm Vital Signs - 8 hr 10/29/17 10/29/17 03:24 07:39 Temperature 97.6 F 97.0 F Pulse Rate 63 63 Respiratory 16 16 Rate Blood Pressure 138/59 129/62 (mmHg) O2 Sat by Pulse 96 93 Oximetry Oxygen Devices in Use Now: None Appearance: NAD, easily arousable Eyes: PERRLA Ears/Nose/Mouth/Throat: NL Teeth, Lips, Gums Neck: NL Appearance and Movements; NL JVP, Trachea Midline Respiratory: Symmetrical Chest Expansion and Respiratory Effort, Clear to Auscultation Cardiovascular: NL Sounds; No Murmurs; No JVD, RRR Extremities: No Clubbing, Cyanosis Neurological: - - Alert Nutrition: Taking PO's Result Diagrams: 10/25/17 13:32 10/29/17 07:00 Additional Lab and Data: Laboratory Results - last 24 hr 10/27/17 06:28 Sodium 142 Potassium 3.5 Chloride 109 Carbon Dioxide 25 Anion Gap 8 BUN 20 Creatinine 0.73 Est GFR ( Amer) 97.9 Est GFR (Non-Af Amer) 76.1 BUN/Creatinine Ratio 27.4 H Glucose 104 H Calcium 8.6 Phenytoin 29.4 H Microbiology and Other Data: Microbiology 10/23/17 16:30 Urine Urine Culture - Final Enterococcus Faecalis 10/23/17 17:06 Blood Venous Aerobic Blood Culture - Preliminary No Growth Day 3 10/23/17 17:06 Blood Venous Anaerobic Blood Culture - Preliminary No Growth Day 3 10/23/17 17:06 Blood Venous Aerobic Blood Culture - Preliminary No Growth Day 3 10/23/17 17:06 Blood Venous Anaerobic Blood Culture - Preliminary No Growth Day 3 10/25/17 11:30 Nasal Nasal Screen MRSA (PCR)(RAHEEL) - Final Mrsa Not Detected Assess/Plan/Problems-Billing Assessment: 82 yo female [facility] dementia, developmental disorder, anaplastic oligodendroglioma s/p craniotomy/resection, seizure d/o on phenytoin, frequent and recent UTI presenting with AMS, sleeping 34/36 hours. On ampicillin for recurrent E Faecalis UTI. Found to have phenytonin levels to 41.7, being held and trending down. - Patient Problems (1) Altered level of consciousness Code(s): R40.4 - TRANSIENT ALTERATION OF AWARENESS SNOMED Code(s): 6760642 Comment: - Phenytoin level down to 20.3 from 41.7 and mentation almost at baseline - PT eval today, patient can normally stand and pivot to wheelchair - Would recommend restarting dilantin and lower dose and monitoring monthly. (2) Electrolyte abnormality Code(s): E87.8 - OTH DISORDERS OF ELECTROLYTE AND FLUID BALANCE, NEC SNOMED Code(s): 724060202 Comment: - Resolved with repletion (3) Seizure disorder Code(s): G40.909 - EPILEPSY, UNSP, NOT INTRACTABLE, WITHOUT STATUS EPILEPTICUS SNOMED Code(s): 435858415 Comment: - Monitor phenytoin levels, no seizures noted (4) UTI (urinary tract infection) Comment: - E faecalis, on ampicillin - Change murry and complete 7 day course of amp (5) Brain tumor Code(s): D49.6 - NEOPLASM OF UNSPECIFIED BEHAVIOR OF BRAIN SNOMED Code(s): 086610204 Comment: - Left frontal lobe brain tumor resected 2004, stable (6) Hypothyroid Code(s): E03.9 - HYPOTHYROIDISM, UNSPECIFIED SNOMED Code(s): 38025199 Comment: - Continue levothyroxine (7) Mental retardation Code(s): F79 - UNSPECIFIED INTELLECTUAL DISABILITIES SNOMED Code(s): 218421987 Comment: - Resident of [facility] - DNR per record (8) DVT prophylaxis Code(s): SQL7852 - SNOMED Code(s): 260622060 Comment: - HSQ Status and Disposition: PT eval today, recheck phenytoin in AM (goal <20) then DC back to [facility].
[2017-10-30] MEDS: Levothyroxine TAB* 125 MCG TAB PO SCH (05:30)
[2017-10-30] MEDS: Heparin VIAL(*) 5000 UNITS/ML VIAL (FIVE THOUSAND) SUBCUT SCH ×3 (05:30→21:49)
[2017-10-30] MEDS: Ampicillin ADVAN(*) 1 GM in NS 0.9% 50 ML* 50 ML IVPB SCH ×3 (05:31→17:39)
[2017-10-30 06:39] LABS: EGFR Non-African American 90.2 (>60)
[2017-10-30] MEDS: Docusate CAP* 100 MG PO SCH ×2 (07:18→21:53)
[2017-10-30] MEDS: Omeprazole CAP* 20 MG PO SCH (07:37)
--- NOTE | 2017-10-30 16:00 | DS ---
CC: Dr. Carmen Ramirez * DISCHARGE SUMMARY: DATE OF ADMISSION: 10/23/17 DATE OF DISCHARGE: 10/30/17 PRIMARY CARE PROVIDER: Dr. Carmen Ramirez. ATTENDING PHYSICIAN: Dr. Christopher Hairston. MY ATTENDING FOR TODAY: Trinity Romero MD * (DICTATED BY RUSLAN AMEZQUITA NP) HOSPITAL COURSE: This is an 82-year-old female patient with past medical history significant for mental retardation, developmental delay, seizure disorder, dementia, recurrent UTI, resection of anaplastic oligodendroglioma. Patient had a craniotomy resection in 2004. Report from the staff at [facility] where the patient resides as a permanent resident, the patient had progressive lethargy with worsening over the past 10 days. The patient was brought into the emergency department for evaluation for altered mental status and found to have an elevated Dilantin level. Her Dilantin at admission was extremely high, she does take 200 mg 2 times a day. Her level at admission was 41.7, which is twice the therapeutic limit. The patient had a CAT scan of the head that showed no acute findings. Her Dilantin was held and she was admitted for urinary tract infection, altered mental status and overdose of Dilantin. Patient's Dilantin levels were checked daily for the 7 days that she was admitted, progressive trending down of these levels was noted , today her level is 20.2, it was recommended that she continue to hold the Dilantin while she is discharged and have it checked again in the next 3 days. Patient slowly began to wake up as her Dilantin levels came down. She was more responsive and talkative. She does have mental retardation and delays, but however, per the staff from her senior living, patient is actually talkative and engaging now which she has not been for months, so I suspect her Dilantin levels have been very high for probably quite a few months which may have been contributing to her progressive decline while at [facility]. PHYSICAL EXAMINATION: This morning on day of discharge, on physical exam, the patient is awake, alert, and responsive. Vital signs are currently blood pressure 122/61, heart rate 54, respiratory rate 16, temperature 96.3 and satting at 96% on room air. HEENT: The patient is atraumatic and normocephalic. PERRLA, with nonicteric sclerae. Oral mucosa is dry. She is edentulous. Neck is supple and nontender. No JVD noted. No thyromegaly appreciated. Cardiovascular: S1 and S2 are present. Rate is mildly bradycardic, rhythm is regular. No murmurs, gallops or rubs appreciated. Lungs are clear bilaterally to auscultation with no wheezing, rhonchi or rales. Abdomen is soft, nontender and nondistended. Positive bowel sounds in all 4 quadrants. : Deferred. Musculoskeletal: There is no clubbing and no cyanosis and no edema. She is normally able to stand and pivot and is primarily wheelchair bound, but has good use of her upper extremities. She has +2 distal pulses palpable and intact. Psychiatric: She is at her baseline. She can follow directions. She does have mental retardation; however, she does follow commands and is able to make her needs known. LABORATORY DATA: Again, Dilantin level today was 20.2, down from 41.7 at admission. CBC: WBC 5.6, RBC 3.45, hemoglobin 10.7, hematocrit 33, platelets are 97. Sodium 143, potassium 4.0, CO2 29, chloride 109, BUN 11, creatinine 0.63, GFR is 90.2. Glucose is 73 to 104. Magnesium was a little low, was 1.5, last level was 2.0. Procalcitonin was negative at less than 0.1. BNP was also negative for heart failure at level 77. CAT scan of the brain dated 10/23/17 showed no acute hemorrhage or infarct. No acute intracranial process. She does have encephalomalacia related to her left frontal lobe tumor resection. No significant interval change since the 2017 CAT scan. She also has stigmata of chronic small vessel ischemic disease similar to her last presentation. DISCHARGE DIAGNOSES: 1. Dilantin overdose and altered mental status. 2. History of mental retardation and developmental delay. 3. History of tumor resection and craniotomy. 4. Subsequent seizure disorder, although per the staff, she never actually had seizures. She was on seizure prophylaxis postoperatively, but has never actually had a postoperative seizure. 5. History of gastroesophageal reflux disease. 6. History of recurrent chronic urinary tract infections, currently on ampicillin. DISCHARGE MEDICATIONS: Include: 1. Guaifenesin 5 to 10 mL p.o. q.4 hours as needed. 2. Docusate 200 mg p.o. 2 times a day. 3. Ibuprofen 400 mg as needed. 4. Tylenol 650 mg 2 times a day as needed. 5. Mineral oil 3 drops to both ears 3 times a day as needed. 6. Align probiotic 4 mg p.o. 2 times a day. 7. Multivitamin 1 tablet daily. 8. Vitamin D, calcium supplement 1 tablet daily. 9. Polyethylene glycol 17 g as needed. 10. Synthroid 125 mcg daily. 11. Sanctura 20 mg p.o. 2 times a day. 12. Omeprazole 20 mg daily. DISPOSITION: The patient will be discharged back to [facility]. I had an extensive conversation with the RN at the bedside representing the facility. We discussed the Dilantin, as it stands right now, the patient has never had a seizure postoperatively, she was placed on Dilantin for prophylaxis after her craniectomy; however, I think this is something that needs to be addressed as an outpatient, if she is retaining this much Dilantin and becoming obtunded from it, perhaps a better choice for seizure prophylaxis would be warranted. This should be discussed with her primary care and Neurosurgery. However, if they do feel that Dilantin is still necessary, I think starting at a lower dose of maybe 100 mg 2 times a day with more frequent monitoring and checking on the patient's mental status to make sure that she is not becoming obtunded again secondary to retention and high Dilantin levels. However, I think at her advanced age, the [facility] does reflect that she is a DNR, but she can be hospitalized. The nursing staff is also feeling that perhaps seizures prophylaxis moving forward is not necessary. Again, these things can be discussed on an outpatient basis. For now, we would hold her Dilantin until her levels come back to normal and then this could be readdressed. The patient was discharged in stable condition in the care of her real estate representative from [facility]. They are arranging transport back to her facility today. All questions were answered. Her discharge summary and medication reconciliation has been completed to reflect these changes. RUSLAN AMEZQUITA, DOYLE [id number]/[facility] #: [id number] [facility] CENTERNicole
[2017-10-30 23:09] VITALS: BP 105/51
== END 2017-10-30 23:30 | DRG 690 ==
LOC: ED 15:36 → MED 20:28 → OBSVTOIN 10-24 14:00
PROVIDERS: ADMIT Internal Medicine; ATTEND Internal Medicine
DX: N39.0 Urinary tract infection, site not specified (principal); E87.0 Hyperosmolality and hypernatremia; B95.2 Enterococcus as the cause of diseases classified elsewhere; R41.82 Altered mental status, unspecified; T42.0X1A Poisoning by hydantoin derivatives, accidental (unintentional), initial encounter; Y92.9 Unspecified place or not applicable; X58.XXXA Exposure to other specified factors, initial encounter; F79 Unspecified intellectual disabilities; R62.50 Unspecified lack of expected normal physiological development in childhood; G93.89 Other specified disorders of brain; G40.909 Epilepsy, unspecified, not intractable, without status epilepticus; F03.90 Unspecified dementia, unspecified severity, without behavioral disturbance, psychotic disturbance, mood disturbance, and anxiety; Z87.440 Personal history of urinary (tract) infections; Z86.718 Personal history of other venous thrombosis and embolism; Z79.1 Long term (current) use of non-steroidal anti-inflammatories (NSAID); Z79.899 Other long term (current) drug therapy; Z88.4 Allergy status to anesthetic agent; Z88.8 Allergy status to other drugs, medicaments and biological substances; Z91.048 Other nonmedicinal substance allergy status; Z66 Do not resuscitate; E03.9 Hypothyroidism, unspecified
CPT/HCPCS: 36415; 70450; 71045; 80048; 80053; 80185; 81003; 81015; 82140; 82550; 83605; 83690; 83735; 83880; 84145; 84300; 84484; 85025; 85060; 86140; 86850; 86900; 86901; 87040; 87077; 87086; 87641; 93005; 94760; 95816; 99284; A9270-GY; G8978-GP-CM; G8979-GP-CM; G8980-GP-CM; J1644; J3475; J3480

== ENCOUNTER 2018-02-01 09:28 | Emergency (ER) | payer MEDICARE, MEDICAID ==
[2018-02-01 11:35] VITALS: BP 112/60
--- NOTE | 2018-02-01 11:38 | UC ---
Respiratory Complaint HPI - HPI Summary HPI Summary: 83 yo female presents accompanied by care givers. Pt is nonverbal and suffers from dementia, thus the history is provided by the caretakers. They tell me that the nursing staff at the assisted living facility has documented that pt has had a dry cough worse at night for the last 10 days. They say she has been acting normal otherwise. Eating and drink as usual. Maybe a bit more tired, but always naps during the day anyway and is not sleeping well due to the coughing. Denies fever, SOB, vomiting, diarrhea. - History of Current Complaint Chief Complaint: UCRespiratory Stated Complaint: COUGH Time Seen by Provider: 02/01/18 11:37 Hx Obtained From: Family/Brush Painter Onset/Duration: Gradual Onset Severity Currently: None Pain Intensity: 0 Character: Cough: Nonproductive - Allergies/Home Medications Allergies/Adverse Reactions: Allergies Allergy/AdvReac Type Severity Reaction Status Date / Time Anesthetics - Letitia Type- Allergy Unknown Verified 02/01/18 11:23 Parabens Reaction Details procaine Allergy Unknown Verified 02/01/18 11:23 Reaction Details Environmental Allergies Allergy Unknown Unknown Uncoded 02/01/18 11:23 Reaction Details tape Allergy See Comment Uncoded 02/01/18 11:23 PMH/Surg Hx/FS Hx/Imm Hx - Additional Past Medical History Additional PMH: Dementia Endocrine History: Hypothyroidism GI/ History: Gastroesophageal Reflux Other History Of: Negative For: Anticoagulant Therapy - Surgical History Surgical History: Yes Surgery Procedure, Year, and Place: PREVIOUS BRAIN TUMOR AND SURGERY IN 2004. PT UNABLE TO COMMUNICATE, DEMENTIA. LIMITED HISTORY - Family History Known Family History: Positive: Unknown Negative: Other - breast cancer Family History: No FHx of breast CA - Social History Occupation: Disabled Lives: Assisted Living Alcohol Use: None Substance Use Type: None Smoking Status (MU): Never Smoked Tobacco - Immunization History Most Recent Influenza Vaccination: 2017 Most Recent Tetanus Shot: 2004 Most Recent Pneumonia Vaccination: 2014 Review of Systems Constitutional: Negative Skin: Negative Eyes: Negative ENT: Negative Respiratory: Cough Cardiovascular: Negative Gastrointestinal: Negative Neurological: Negative Psychological: Negative All Other Systems Reviewed And Are Negative: Yes Physical Exam - Summary Physical Exam Summary: Physical limited due to pt dementia and severe lack of verbal communication GENERAL: NAD. No pain distress. SKIN: No rashes, sores, lesions, or open wounds. HEENT: Head: AT/NC Eyes: EOM intact. Conjunctiva clear without inflammation or discharge. Ears: Hearing grossly normal. TMs intact, no bulging, erythema, or edema. Nose: Nasal mucosa pink and moist. NTTP maxillary and frontal sinus. Throat: Posterior oropharynx without exudates, erythema, or tonsillar enlargement. Uvula midline. NECK: Supple. Nontender. No lymphadenopathy. CHEST: CTAB. No r/r/w. No accessory muscle use. Breathing comfortably and in no distress. CV: RRR. Pulses intact. Brisk cap refill. NEURO: Appears tired, but responds when spoken to Triage Information Reviewed: Yes Vital Signs: Initial Vital Signs Temp 96.8 F 02/01/18 11:24 Pulse 64 02/01/18 11:24 Resp 20 02/01/18 11:24 BP 112/60 02/01/18 11:24 Pulse Ox 98 02/01/18 11:24 Diagnostic Evaluation - Laboratory O2 Sat by Pulse Oximetry: 98 Respiratory Course/Dx - Course Course Of Treatment: CXR: IMPRESSION: HYPERINFLATION, CONSISTENT WITH COPD. NO ACTIVE CARDIOPULMONARY DISEASE. Given pt's dementia and inability to effectively communicate - will rx for anbx and tessalon. Advised to f/u with PCP within 1 week for recheck - Differential Dx/Diagnosis Provider Diagnoses: Cough Discharge - Sign-Out/Discharge Documenting (check all that apply): Patient Departure - Discharge Plan Condition: Stable Disposition: HOME Prescriptions: Amoxicillin PO (*) [Amoxicillin 875 MG (*)] 875 mg PO BID #14 tab Benzonatate CAP* [Tessalon 100 MG CAP*] 100 mg PO TID PRN #[id number] cap PRN Reason: Cough Patient Education Materials: Acute Cough (ED) Referrals: Carmen Ramirez MD [Primary Care Provider] - As Soon As Possible Additional Instructions: If you develop a fever, shortness of breath, chest pain, new or worsening symptoms - please call your PCP or go to the ED. - Billing Disposition and Condition Condition: STABLE Disposition: Home
--- NOTE | 2018-02-01 12:29 | RAD ---
HISTORY: cough COMPARISONS: October 25, 2012 VIEWS: 3: Frontal and lateral views of the chest. FINDINGS: CARDIOMEDIASTINAL SILHOUETTE: The cardiomediastinal silhouette is normal. STORMY: The stormy are normal. PLEURA: The costophrenic angles are sharp. No pleural abnormalities are noted. LUNG PARENCHYMA: There is hyperinflation with flattening of the diaphragm and expansion of the AP diameter of the chest. ABDOMEN: The upper abdomen is clear. There is no subphrenic gas. BONES AND SOFT TISSUES: There is diffuse osteopenia. Degenerative changes are noted. OTHER: None. IMPRESSION: HYPERINFLATION, CONSISTENT WITH COPD. NO ACTIVE CARDIOPULMONARY DISEASE.
== END 2018-02-01 12:45 | disposition home or self-care (01) ==
LOC: UCEAST 09:28
DX: R05 Cough (principal); F03.90 Unspecified dementia, unspecified severity, without behavioral disturbance, psychotic disturbance, mood disturbance, and anxiety; Z91.09 Other allergy status, other than to drugs and biological substances; Z88.4 Allergy status to anesthetic agent
CPT/HCPCS: 71046; 99212; G0463

== ENCOUNTER 2019-06-13 13:08 | Emergency (ER) | payer MEDICARE, MEDICAID ==
--- NOTE | 2019-06-13 13:43 | ED ---
Throat Pain/Nasal Congestion - HPI Summary HPI Summary: 84 year old female presents to the ED with a chief complaint of congestion and dyspnea starting this morning. Patient just recovered from pneumonia, for which she took erythromycin and ciprofloxacin to full course. Per shelter caregiver , patient has a sore throat. Per caregiver, patient has not been coughing. No PMHx of HTN, IN, DM. No history of smoking tobacco. - History of Current Complaint Chief Complaint: EDGeneral Time Seen by Provider: 06/13/19 13:15 Hx Obtained From: Family/Well Service Derrick Worker Onset/Duration: Lasting Hours, Still Present Severity: Mild Associated Signs And Symptoms: Positive: Hoarseness, Sinus Discomfort Cough: None - Allergies/Home Medications Allergies/Adverse Reactions: Allergies Allergy/AdvReac Type Severity Reaction Status Date / Time Anesthetics - Letitia Type- Allergy Unknown Verified 06/13/19 13:16 Parabens Reaction Details procaine Allergy Unknown Verified 06/13/19 13:16 Reaction Details Environmental Allergies Allergy Unknown Unknown Uncoded 06/13/19 13:16 Reaction Details tape Allergy See Comment Uncoded 06/13/19 13:16 PMH/Surg Hx/FS Hx/Imm Hx Endocrine/Hematology History: Reports: Hx Thyroid Disease Denies: Hx Anticoagulant Therapy, Hx Diabetes, Hx Sickle Cell Disease Cardiovascular History: Denies: Hx Congestive Heart Failure, Hx Hypertension, Hx Pacemaker/ICD Respiratory History: Denies: Hx Asthma, Hx Chronic Obstructive Pulmonary Disease (COPD) GI History: Reports: Hx Gastroesophageal Reflux Disease, Other GI Disorders - constipation Denies: Hx Ulcer History: Reports: Other Problems/Disorders - urinary incontinence, UTI Denies: Hx Renal Disease Musculoskeletal History: Reports: Hx Arthritis - OSTEOARTHRITIS, Hx Osteoporosis - osteopenia, Hx Scoliosis - mild Denies: Other Musculoskeletal History Sensory History: Reports: Hx Cataracts, Hx Contacts or Glasses, Hx Hearing Aid, Hx Hearing Problem Opthamlomology History: Reports: Hx Cataracts, Hx Contacts or Glasses Neurological History: Reports: Hx Dementia, 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 PT UNABLE TO COMMUNICATE, DEMENTIA. LIMITED HISTORY Hx Anesthesia Reactions: No Infectious Disease History: No Infectious Disease History: Denies: Hx Clostridium Difficile, Hx Hepatitis, Hx Human Immunodeficiency Virus (HIV), Hx of Known/Suspected MRSA, Hx Shingles, Hx Tuberculosis, Hx Known/ Suspected VRE, Hx Known/Suspected VRSA, History Other Infectious Disease, Traveled Outside the [place] in Last 30 Days - Family History Known Family History: Negative: Other - breast cancer Family History: No FHx of breast CA - Social History Alcohol Use: None Hx Substance Use: No Substance Use Type: Reports: None Hx Tobacco Use: No Smoking Status (MU): Never Smoked Tobacco Review of Systems Negative: Fever Positive: Other - nasal congestion Positive: Shortness Of Breath. Negative: Cough All Other Systems Reviewed And Are Negative: Yes Physical Exam - Summary Physical Exam Summary: Constitutional: Well-developed, Well-nourished, Alert. (-) Distressed Skin: Warm, Dry HENT: Normocephalic; Atraumatic Eyes: Conjunctiva normal Neck: Musculoskeletal ROM normal neck. (-) JVD, (-) Stridor, (-) Tracheal deviation Cardio: Rhythm regular, rate normal, Heart sounds normal; Intact distal pulses; The pedal pulses are 2+ and symmetric. Radial pulses are 2+ and symmetric. (-) Murmur Pulmonary/Chest wall: Effort normal. Breathing comfortably. Breath sounds course bilaterally upon auscultation, transmitted from upper airway. (-) Respiratory distress, (-) Wheezes, (-) Rales Abd: Soft, (-) tenderness, (-) Distension, (-) Guarding, (-) Rebound Musculoskeletal: (-) Edema Lymph: (-) Cervical adenopathy Neuro: Alert. Awake. Nonverbal. Psych: Mood and affect Normal Triage Information Reviewed: Yes Vital Signs On Initial Exam: Initial Vitals Temp Pulse Resp BP Pulse Ox 97.4 F 63 22 126/48 97 06/13/19 13:09 06/13/19 13:09 06/13/19 13:09 06/13/19 13:09 06/13/19 13:09 Vital Signs Reviewed: Yes Procedures - Sedation Patient Received Moderate/Deep Sedation with Procedure: No Diagnostics - Vital Signs Vital Signs Temp Pulse Resp BP Pulse Ox 11/29/19 13:09 97.4 F 63 22 126/48 97 - Laboratory Lab Statement: Any lab studies that have been ordered have been reviewed, and results considered in the medical decision making process. - Radiology CXR Radiology Interpretation Completed By: Radiologist Summary of Radiographic Findings: IMPRESSION: 1. Probable obstructive lung disease. 2. No evidence for pneumonia. No evidence for acute intrathoracic disease. EENT Course/Dx - Course Course Of Treatment: 84 year old female presents to the ED with a chief complaint of congestion and dyspnea starting this morning. Patient just recovered from pneumonia, for which she took erythromycin and ciprofloxacin to full course. Per shelter caregiver, patient has a sore throat. Per caregiver , patient has not been coughing. No PMHx of HTN, IN, DM. No history of smoking tobacco. Breath sounds course bilaterally upon auscultation, transmitted from upper airway. No wheezing. Patient is breathing comfortably, in no acute respiratory distress. Patient is awake and alert, but nonverbal. CXR IMPRESSION : 1. Probable obstructive lung disease. 2. No evidence for pneumonia. No evidence for acute intrathoracic disease. Diagnosis is aspiration and dehydration. Patient is feeling better and will be discharged home, follow up with PCP within 3 days. Patient was told to return to the ED for new or worsened symptoms. Pt understands and agrees with this plan. - Diagnoses Provider Diagnoses: Dehydration, Aspiration into airway Discharge ED - Sign-Out/Discharge Documenting (check all that apply): Patient Departure - discharge - Discharge Plan Condition: Stable Disposition: HOME Patient Education Materials: Aspiration Precautions (ED), Dehydration (ED) Referrals: Carmen Ramirez MD [Primary Care Provider] - Additional Instructions: Follow up with your primary care provider within 3 days. Return to the Emergency Department if you experience new or worsened symptoms. - Attestation Statements Document Initiated by Scribe: Yes Documenting Scribe: Ti Bennett Provider For Whom Leobardo is Documenting (Include Credential): Anthony Lima DO. Scribe Attestation: Ti Almaguer scribed for Anthony Lima DO. on 06/13/19 at 1420. Status of Scribe Document: Ready
[2019-06-13 14:40] VITALS: BP 93/68
== END 2019-06-13 14:33 | disposition home or self-care (01) ==
LOC: ED 13:08
DX: E86.0 Dehydration (principal); T17.900A Unspecified foreign body in respiratory tract, part unspecified causing asphyxiation, initial encounter; X58.XXXA Exposure to other specified factors, initial encounter; Y92.9 Unspecified place or not applicable; E07.9 Disorder of thyroid, unspecified; K21.9 Gastro-esophageal reflux disease without esophagitis; F03.90 Unspecified dementia, unspecified severity, without behavioral disturbance, psychotic disturbance, mood disturbance, and anxiety; F41.9 Anxiety disorder, unspecified; Z85.841 Personal history of malignant neoplasm of brain; Z88.4 Allergy status to anesthetic agent
CPT/HCPCS: 71045; 99282

== ENCOUNTER 2023-02-20 22:40 | Observation (INO) ==
[2023-02-20 23:30] LABS: ABS Eosinophils 0.3 10^3/uL (0.0-0.5); ABS Monocytes 0.4 10^3/uL (0.0-0.9); ABS Nucleated RBC 0.01 10^3/ul; Eosinophil % 4.5 %; Hematocrit 33.6 % (35-45); Hemoglobin 11.2 g/dL (11.5-14.3); Lymphocyte % 14.4 %; Mean Corpuscular Hemoglobin 29.3 pg (27-33); Mean Corpuscular Hgb Conc 33.3 g/dL (31-36); Mean Corpuscular Volume 88.2 fL (80-97); Mean Platelet Volume 9.4 fL (7.5-11.2); Nucleated Red Blood Cells % 0.1 /100 WBC (0.0-0.4); Platelet Count 141 10^3/uL (150-450); Red Blood Count 3.81 10^6/uL (3.63-4.92); Red Cell Distribution Width 13.9 % (12-17); White Blood Count 6.7 10^3/uL (3.8-11.8)
[2023-02-20 23:46] LABS: Albumin 3.7 g/dL (3.2-5.2); Albumin/Globulin Ratio 1.1 (1-3); Calcium 9.2 mg/dL (8.6-10.3); Creatinine, Serum 0.87 mg/dL (0.51-0.95); Globulin 3.4 g/dL (2-4); Potassium 4.1 mmol/L (3.5-5.0); Total Bilirubin 0.3 mg/dL (0.2-1.0); Total Protein 7.1 g/dL (6.4-8.9); eGFR CKD-EPI 63.6 (>60)
[2023-02-21 01:04] LABS: High Sensitivity Troponin 1 Hr 46 pg/mL (<15)
[2023-02-21 01:10] LABS: C Reactive Protein 1.12 mg/L (<8.01)
[2023-02-21] MEDS ORDERED: NS 0.9% 1000 ml BAG 1,000 ML IV SCH (01:45)
[2023-02-21] MEDS: Enoxaparin 30 MG/0.3 ML SYR SUBCUT SCH ×2 (02:14→22:10)
[2023-02-21] MEDS ORDERED: Bacitracin OINTMENT PAK TOPICAL PRN (03:38)
[2023-02-21] MEDS ORDERED: Levothyroxine 100 MCG/5 ML VIAL IV SCH (06:00)
[2023-02-21] MEDS: Lactated Ringers 1000 ml BAG 1,000 ML IV SCH (13:22)
[2023-02-22] MEDS: Lactated Ringers 1000 ml BAG 1,000 ML IV SCH (00:04)
[2023-02-22 06:11] LABS: Hematocrit 30.2 % (35-45); Hemoglobin 10.2 g/dL (11.5-14.3); Mean Corpuscular Hemoglobin 29.4 pg (27-33); Mean Corpuscular Hgb Conc 33.8 g/dL (31-36); Mean Platelet Volume 10.4 fL (7.5-11.2); Platelet Count 108 10^3/uL (150-450); Red Blood Count 3.47 10^6/uL (3.63-4.92); Red Cell Distribution Width 13.7 % (12-17); White Blood Count 5.7 10^3/uL (3.8-11.8)
[2023-02-22 06:29] LABS: Calcium 8.9 mg/dL (8.6-10.3); Creatinine, Serum 0.62 mg/dL (0.51-0.95); Potassium 4.4 mmol/L (3.5-5.0); eGFR CKD-EPI 85.1 (>60)
[2023-02-22] MEDS ORDERED: Polyethylene Glycol 3350 17 GM PACKET PO SCH (09:00)
[2023-02-22 11:02] VITALS: BP 129/81
== END 2023-02-22 17:05 | disposition home or self-care (01) ==
LOC: EDHOLD 22:40 → ED 22:40 → SUATTDRO 02-21 01:37 → MED 02-21 03:17
PROVIDERS: ADMIT Internal Medicine; ATTEND Student in an Organized Health Care Education/Training Program

== ENCOUNTER 2023-10-07 10:30 | Observation (INO) ==
[2023-10-07] MEDS: NS 0.9% 1000 ml BAG 1,000 ML IV ONE (11:32)
[2023-10-07] MEDS: Piperacillin/Tazobac 3.375 BAG 3.375 GM/100 ML BAG IV ONE (11:32)
[2023-10-07 11:42] LABS: ABS Eosinophils 0.4 10^3/uL (0.0-0.5); ABS Lymphocytes 1.2 10^3/uL (1.0-4.8); ABS Monocytes 0.7 10^3/uL (0.0-0.9); ABS Neutrophils 3.8 10^3/uL (1.5-7.6); ABS Nucleated RBC 0.01 10^3/ul; Eosinophil % 6.4 %; Hematocrit 33.4 % (35-45); Hemoglobin 10.9 g/dL (11.5-14.3); Lymphocyte % 19.1 %; Mean Corpuscular Hemoglobin 28.6 pg (27-33); Mean Corpuscular Hgb Conc 32.7 g/dL (31-36); Mean Corpuscular Volume 87.4 fL (80-97); Mean Platelet Volume 9.7 fL (7.5-11.2); Nucleated Red Blood Cells % 0.1 %/100WBC (0.0-0.8); Platelet Count 176 10^3/uL (150-450); Red Blood Count 3.82 10^6/uL (3.63-4.92); Red Cell Distribution Width 14.8 % (12-17); White Blood Count 6.1 10^3/uL (3.8-11.8)
[2023-10-07 12:14] LABS: Albumin 3.5 g/dL (3.2-5.2); Albumin/Globulin Ratio 1.1 (1-3); C Reactive Protein 8.86 mg/L (<8.01); Calcium 9.2 mg/dL (8.6-10.3); Creatinine, Serum 0.84 mg/dL (0.51-0.95); Globulin 3.1 g/dL (2-4); Potassium 4.8 mmol/L (3.5-5.0); Total Bilirubin 0.3 mg/dL (0.2-1.0); Total Protein 6.6 g/dL (6.4-8.9); eGFR CKD-EPI 66.4 (>60)
[2023-10-07 13:18] LABS: High Sensitivity Troponin 1 Hr 20 pg/mL (<15)
[2023-10-07] MEDS ORDERED: Bacitracin OINTMENT TUBE TOPICAL PRN (14:39)
[2023-10-07] MEDS ORDERED: Al Hydrox/Mg Hydrox/Simet LIQ 30 ML UDC PO PRN (14:39)
[2023-10-07] MEDS ORDERED: Magnesium Hydroxide LIQ 30 ML UDC PO PRN (14:39)
[2023-10-07] MEDS ORDERED: Enoxaparin 40 MG/0.4 ML SYR SUBCUT SCH (15:00)
[2023-10-07] MEDS: cefTRIAXone 1 gm/50 mL D5W 1 GM/50 ML BAG IV SCH (16:38)
[2023-10-07] MEDS: Heparin 5000 UNITS/ML 1 mL VIAL SUBCUT SCH (18:08)
[2023-10-07] MEDS: Polyethylene Glycol 3350 BTL 238 GM BTL PO SCH (18:08)
[2023-10-07] MEDS: Azithromycin 500 mg/250 ml NS 500 MG/250 ML BAG IVPB SCH (18:08)
[2023-10-08 05:43] LABS: ABS Eosinophils 0.4 10^3/uL (0.0-0.5); ABS Lymphocytes 1.2 10^3/uL (1.0-4.8); ABS Monocytes 0.6 10^3/uL (0.0-0.9); ABS Neutrophils 3.1 10^3/uL (1.5-7.6); Eosinophil % 7.9 %; Hematocrit 32.5 % (35-45); Hemoglobin 10.7 g/dL (11.5-14.3); Lymphocyte % 22.7 %; Mean Corpuscular Hemoglobin 28.7 pg (27-33); Mean Corpuscular Hgb Conc 32.8 g/dL (31-36); Mean Corpuscular Volume 87.6 fL (80-97); Nucleated Red Blood Cells % 0.1 %/100WBC (0.0-0.8); Platelet Count 150 10^3/uL (150-450); Red Blood Count 3.71 10^6/uL (3.63-4.92); Red Cell Distribution Width 14.5 % (12-17); White Blood Count 5.4 10^3/uL (3.8-11.8)
[2023-10-08 05:55] LABS: Creatinine, Serum 0.69 mg/dL (0.51-0.95); Potassium 4.2 mmol/L (3.5-5.0); eGFR CKD-EPI 82.9 (>60)
[2023-10-08] MEDS: Polyethylene Glycol 3350 17 GM PACKET PO SCH (09:36)
[2023-10-09 06:06] LABS: ABS Eosinophils 0.4 10^3/uL (0.0-0.5); ABS Lymphocytes 1.3 10^3/uL (1.0-4.8); ABS Monocytes 0.6 10^3/uL (0.0-0.9); ABS Neutrophils 2.7 10^3/uL (1.5-7.6); Eosinophil % 8.1 %; Hematocrit 32.2 % (35-45); Hemoglobin 10.7 g/dL (11.5-14.3); Lymphocyte % 26.2 %; Mean Corpuscular Hemoglobin 28.8 pg (27-33); Mean Corpuscular Hgb Conc 33.4 g/dL (31-36); Mean Corpuscular Volume 86.4 fL (80-97); Mean Platelet Volume 9.7 fL (7.5-11.2); Nucleated Red Blood Cells % 0.1 %/100WBC (0.0-0.8); Platelet Count 144 10^3/uL (150-450); Red Blood Count 3.73 10^6/uL (3.63-4.92)
[2023-10-09 06:30] LABS: Creatinine, Serum 0.72 mg/dL (0.51-0.95); Potassium 4.3 mmol/L (3.5-5.0); eGFR CKD-EPI 79.9 (>60)
[2023-10-09 09:39] VITALS: BP 163/72
== END 2023-10-09 13:30 | disposition home or self-care (01) ==
LOC: ED 10:30 → EDHOLD 10:30 → SUATTDRO 13:50 → MED 14:28
PROVIDERS: ADMIT Hospitalist; ATTEND Internal Medicine